=== PATIENT | female | born 1945 | race Caucasian/White ===

== ENCOUNTER → 2016-10-20 | Outpatient (CLI) | payer BC ==
[~2016-10-20] MED LIST: ASPCH81X PO; CHOL1TAB; COEN1CAP17 PO; CRAN1CAP2; DOCU-94 PO; DOXY100C76 PO; GLUC10007 PO; GLUCTAB32 PO; MISC-573; MULT-506 PO; OXYC-57 PO; PANT40TA PO; PSYL0.524 PO; PSYL55.43 PO; ROSU5TAB PO
--- NOTE | 2016-10-20 12:56 | DIAGNOSTIC IMAGING REPORT ---
CHEST 2 VIEWS ROUTINE CLINICAL HISTORY: Productive cough COMPARISON STUDY: No previous studies for comparison. FINDINGS: The cardiac and mediastinal contours are normal. There is no evidence of focal pulmonary consolidation. There is no evidence of failure. No pleural effusions are visualized.[ IMPRESSION: No active disease in the chest. Electronically signed by: Carlos Chen M.D. 10/20/2016 12:54 PM Dictated Date/Time: 10/20/2016 12:54 PM
== END | disposition home or self-care (01) ==
LOC: C.RAD 12:22
PROVIDERS: ATTEND Family Medicine
DX: R05 Cough (principal)

== ENCOUNTER 2016-10-31 10:19 | Observation (INO) | payer BC ==
[~2016-10-31] VITALS: Ht 170.2 cm; Wt 76.8 kg
[2016-10-31] VITALS (7 sets, daily range): BP systolic 105–158; BP diastolic 65–86; PULSE 71–79; TEMP 36.4–36.5; O2SAT 94–100; Ht 170.2 cm; Wt 76.8 kg
[~2016-10-31 10:19] MED LIST changes: +CEFAZOLIN 2000 MG/60 ML D5W 60 ML IV SCH; -COEN1CAP17 PO; -DOCU-94 PO; -DOXY100C76 PO; -GLUCTAB32 PO; -MISC-573; -OXYC-57 PO; -PANT40TA PO; -PSYL0.524 PO; -PSYL55.43 PO; -ROSU5TAB PO
[2016-10-31] MEDS ORDERED: PSYL55.43 PO (10:25)
[2016-10-31] MEDS ORDERED: ONDANSETRON INJ 2 MG/ML 2 ML VIAL IV STA (10:30)
[2016-10-31] MEDS ORDERED: SODIUM CHLORIDE 0.9% 1000ML 1,000 ML IV STA (10:30)
[2016-10-31] MEDS ORDERED: DOXY100C76 PO (10:42)
[2016-10-31] MEDS: MoRPHine SULFATE 10 MG/ML CARP/VIAL IV PRN ×3 (10:46→11:15)
--- NOTE | 2016-10-31 10:46 | EMERGENCY ROOM VISIT NOTE ---
History Report prepared by Klaudia: Caio Bernard Under the Supervision of: Dr. Mingo Alvarado M.D. 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 The patient was checking her mailbox when she slipped on a patch of ice and fell. The patient now complains of pain to her left shoulder and right knee. The left shoulder pain is most severe, and is worsened with movement. She did not take anything for pain. The patient was not able to get up after the fall. She hit her mouth on the pavement during the fall but did not lose consciousness. She did not injure her neck, back, abdomen, or chest. The patient is not on any blood thinners. She has never broken a bone before. The patient followed up with Dr. Koch, Orthopedic Surgeon, in the past for a bone spur. The patient is currently taking Doxycycline for a URI. 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 A total of 10 systems reviewed and were otherwise negative. Past Medical & Surgical Surgical Problems: (1) H/O shoulder surgery Family History Patient reports no known family medical history. Social History Smoking Status: Unknown if Ever Smoked Occupation Status: retired Current/Historical Medications Scheduled Aspirin (Aspirin Chewable), 81 MG PO Q2D Cholecalciferol (Vitamin D-3), DAILY Cranberry-Vitamin C-Vitamin E (Cranberry Super Strength), DAILY Doxycycline Monohydrate (Monodox), 100 MG PO BID Glucosamine Sulfate (Glucosamine), 1,000 MG PO DAILY Multivitamin (Multivitamin), 1 TAB PO DAILY Psyllium (Metamucil Powder), 1 PACK PO DAILY Allergies Coded Allergies: Nitrates, Organic (Unverified Allergy, Mild, 10/31/16) Nitrofurantoin (Unverified Allergy, Mild, 10/31/16) Ciprofloxacin (Verified Allergy, Unknown, HEART RACING, WARM FEELING, ) Uncoded Allergies: BLADDER INF MED (Allergy, Mild, 10/09/07) Physical Exam Vital Signs Date Time Temp Pulse Resp B/P Pulse Ox O2 Delivery O2 Flow Rate FiO2 10/31/16 13:16 78 18 176/84 99 Room Air 10/31/16 11:48 76 18 155/80 99 Nasal Cannula 2.0 10/31/16 11:45 84 Room Air 10/31/16 10:59 188/79 10/31/16 10:32 36.8 70 18 177/95 100 Room Air Physical Exam GENERAL: Patient is in significant distress secondary to pain. HEENT: No acute trauma, normocephalic atraumatic, mucous membranes moist, no nasal congestion, no scleral icterus. NECK: No stridor, no adenopathy, no meningismus, trachea is midline. LUNGS: Clear to auscultation bilaterally, no wheeze, no rhonchi, breath sounds equal. HEART: Without murmurs gallops or rubs, regular rate and rhythm. ABDOMEN: Soft, nontender, bowel sounds positive, no hernias, no peritonitis. EXTREMITIES: Swelling and pain to palpate the proximal left humerus, exam consistent with fracture, no evidence for left shoulder dislocation, left elbow and left wrist are without evidence for fracture, strong left radial pulse. Right anterior knee contusion, no evidence for dislocation, no bony deformity, no laceration requiring repair. NEUROLOGIC: Oriented x 3, no acute motor or sensory deficits, no focal weakness. SKIN: No rash, no jaundice, no diaphoresis. Medical Decision & Procedures ER Provider Diagnostic Interpretation: X ray results and stated below per my interpretation and radiologist interpretation. Other radiology results and stated below per my review and radiologist interpretation: LEFT SHOULDER MIN 2 VIEWS ROUTINE CLINICAL HISTORY: Left shoulder pain status post trauma COMPARISON: None. DISCUSSION: There is displaced spiral fracture of the proximal humeral diaphysis. Distal fragment is medial displaced x 12 mm. There is mild foreshortening at the fracture site. There is no humeral head dislocation. IMPRESSION: Acute displaced spiral fracture the proximal humeral diaphysis. Electronically signed by: Carlos Chen M.D. 10/31/2016 11:56 AM Dictated Date/Time: 10/31/2016 11:55 AM LEFT HUMERUS 2 VIEWS CLINICAL HISTORY: Fall with left arm pain. FINDINGS: AP and lateral views of the left humerus are obtained. No prior studies are available for comparison at the time of dictation. The skeletal structures are osteopenic. There is a spiral fracture through the proximal shaft of the left humerus with overlying soft tissue edema. There is medial distraction of the distal fragment by at least one shaft length, as well as anterior distraction of the distal shaft by approximately 1 shaft length. There is at least 3 cm of overriding of the fragments. There is mild apex volar angulation. The left shoulder and elbow joints are grossly maintained. Surgical clips are noted in the left axilla. Partially imaged left lung parenchyma appears clear. IMPRESSION: There is a distracted, angulated, and overriding fracture through the proximal left humeral shaft as above. Electronically signed by: Mingo King M.D. 10/31/2016 11:56 AM Dictated Date/Time: 10/31/2016 11:54 AM RIGHT KNEE 3 VIEWS HISTORY: fall, pain Right COMPARISON: None. FINDINGS: There is no fracture or dislocation. Mild prepatellar soft tissue swelling. Small knee effusion. Mild cartilage space narrowing within the medial compartment consistent with degenerative change. No radiopaque foreign bodies. IMPRESSION: No fracture or dislocation within the right knee. Mild prepatellar soft tissue swelling with a small knee effusion. Electronically signed by: Mario Alberto Rodgers M.D. 10/31/2016 11:52 AM Dictated Date/Time: 10/31/2016 11:[address] SCAN OF THE BRAIN WITHOUT IV CONTRAST CLINICAL HISTORY: Fall. COMPARISON STUDY: No priors. TECHNIQUE: Unenhanced axial CT scan of the brain is performed from the vertex to the skull base. CT DOSE: 729.78 mGycm FINDINGS: Brain parenchyma: There are age-related involutional changes noting minimal subcortical and periventricular microangiopathic change. There is no hemorrhage, mass effect, or evidence of acute territorial ischemia by CT criteria. Do-white matter is preserved. No extra-axial fluid collection is seen. Ventricles, sulci, cisterns: Prominent secondary to involutional change. Intracranial vasculature: The partially visualized intracranial vessels at the skull base are normal in appearance. Calvarium: The skeletal structures are osteopenic. There is no depressed calvarial fracture. Sinuses and mastoids: There is trace fluid within the right maxillary antrum. Frothy secretions are present within the right sphenoid sinus and the posterior right ethmoid sinuses. The mastoid air cells are well pneumatized. Orbits: The bony orbits are grossly intact. There are bilateral ocular lens implants. There has been previous ocular globe banding. IMPRESSION: There is no hemorrhage, mass effect, or evidence of acute territorial ischemia by CT criteria. Electronically signed by: Mingo King M.D. 10/31/2016 2:49 PM Dictated Date/Time: 10/31/2016 2:46 PM Laboratory Results 10/31/16 10:40 10/31/16 10:40 Test 10/31/16 10:40 Red Blood Count 4.62 M/uL (4.2-5.4) Mean Corpuscular Volume 89.8 fL (80-100) Mean Corpuscular Hemoglobin 30.7 pg (25-34) Mean Corpuscular Hemoglobin Concent 34.2 g/dl (32-36) RDW Standard Deviation 42.5 fL (36.4-46.3) RDW Coefficient of Variation 13.1 % (11.5-14.5) Mean Platelet Volume 10.2 fL (7.4-10.4) Anion Gap 9.0 mmol/L (3-11) Est Creatinine Clear Calc Drug Dose 61.7 ml/min Estimated GFR () 73.6 Estimated GFR (Non- 63.5 BUN/Creatinine Ratio 19.8 (10-20) Calcium Level 9.5 mg/dl (8.5-10.1) Laboratory results reviewed by me. Medications Administered Medications (Trade) Dose Ordered Sig/Elizabeth Route Start Time Stop Time Status Last Admin Dose Admin Morphine Sulfate (MoRPHine SULFATE INJ) 6 mg Q15M PRN IV 10/31/16 10:30 10/31/16 14:43 DC 10/31/16 11:15 6 MG Ondansetron HCl 4 mg 4 mg NOW STAT IV 10/31/16 10:30 10/31/16 10:33 DC 10/31/16 10:46 4 MG Sodium Chloride (Nss 1000ml) 1,000 ml @ 200 mls/hr Q5H STAT IV 10/31/16 10:30 10/31/16 14:43 DC 10/31/16 10:46 200 MLS/HR Ondansetron HCl (Zofran Inj) 4 mg STK-MED ONCE .ROUTE 10/31/16 12:32 10/31/16 12:34 DC 10/31/16 12:35 4 MG Metoclopramide HCl 10 mg 10 mg Q6H PRN IV 10/31/16 13:30 11/30/16 13:29 10/31/16 15:18 10 MG Dextrose/Sodium Chloride (D5W And 1/2nss) 1,000 ml @ 100 mls/hr Q10H IV 10/31/16 13:27 11/30/16 13:26 10/31/16 15:24 100 MLS/HR ED Course 1027: The patient was evaluated in room B4b. A complete history and physical exam was performed. 1030: NSS 1000 ml @ 200 mls/hr, Zofran 4 mg IV, Morphine Sulfate 6 mg IV. 1211: Discussed the case with Dr. Kovacs, Orthopedic Surgeon. He recommended the arm be placed in a splint. 1225: Updated the patient. 1310: Dr. Koch, Orthopedic Surgeon, evaluated the patient. He would like to take her to the OR later today. Medical Decision Differential diagnosis includes shoulder dislocation, humerus fracture, neurovascular compromise, rib head or neck injury, back injury, knee fracture or contusion. There is no leukocytosis or concerning anemia. No significant electrolyte abnormality or kidney failure. Brain CT shows no acute bleed or mass effect. Right knee film shows no acute fracture. Left humerus and shoulder films reveal a proximal humeral shaft fracture. The shoulder is not dislocated. On exam, there was no neurovascular compromise. The patient received IV morphine, IV Zofran, she received IV saline. I did discuss the case with orthopedics. A splint was placed. Orthopedics did evaluate the patient in the emergency room, the patient is going to be sent to the OR for intervention. I talked about all my findings with the patient. I do think her knee is just contused. There does not appear to be any injury to the ribs, back or C-spine by my exam or history. Consults Time Called: 1205 Consulting Physician: Dr. Kovacs, Orthopedic Surgeon Returned Call: 1210 1211: Discussed the case with Dr. Kovacs, Orthopedic Surgeon. He recommended the arm be placed in a sling. Impression Primary Impression: Left humeral fracture Additional Impressions: Contusion of right knee Fall Scribe Attestation The scribe's documentation has been prepared under my direction and personally reviewed by me in its entirety. I confirm that the note above accurately reflects all work, treatment, procedures, and medical decision making performed by me. Departure Information Dispostion Being Evaluated By Surgeon Ariel Ding M.D. (PCP) Problem Qualifiers
[2016-10-31 10:59] LABS: HEMATOCRIT 41.5 % (37-47); MEAN CELL VOLUME 89.8 fL (80-100); MEAN CORPUSCULAR HEMOGLOBIN 30.7 pg (25-34); MEAN CORPUSCULAR HGB CONC 34.2 g/dl (32-36); MEAN PLATELET VOLUME 10.2 fL (7.4-10.4); PLATELET COUNT 244 K/uL (130-400); RED BLOOD COUNT 4.62 M/uL (4.2-5.4); WHITE BLOOD COUNT 9.25 K/uL (4.8-10.8)
[2016-10-31 11:16] LABS: BUN/CREATININE RATIO 19.8 (10-20); CALCIUM 9.5 mg/dl (8.5-10.1); CREATININE 0.92 mg/dl (0.60-1.20); POTASSIUM 4.3 mmol/L (3.5-5.1)
--- NOTE | 2016-10-31 11:54 | DIAGNOSTIC IMAGING REPORT ---
RIGHT KNEE 3 VIEWS HISTORY: fall, pain Right COMPARISON: None. FINDINGS: There is no fracture or dislocation. Mild prepatellar soft tissue swelling. Small knee effusion. Mild cartilage space narrowing within the medial compartment consistent with degenerative change. No radiopaque foreign bodies. IMPRESSION: No fracture or dislocation within the right knee. Mild prepatellar soft tissue swelling with a small knee effusion. Electronically signed by: Mario Alberto Rodgers M.D. 10/31/2016 11:52 AM Dictated Date/Time: 10/31/2016 11:51 AM
--- NOTE | 2016-10-31 11:57 | DIAGNOSTIC IMAGING REPORT ---
LEFT HUMERUS 2 VIEWS CLINICAL HISTORY: Fall with left arm pain. FINDINGS: AP and lateral views of the left humerus are obtained. No prior studies are available for comparison at the time of dictation. The skeletal structures are osteopenic. There is a spiral fracture through the proximal shaft of the left humerus with overlying soft tissue edema. There is medial distraction of the distal fragment by at least one shaft length, as well as anterior distraction of the distal shaft by approximately 1 shaft length. There is at least 3 cm of overriding of the fragments. There is mild apex volar angulation. The left shoulder and elbow joints are grossly maintained. Surgical clips are noted in the left axilla. Partially imaged left lung parenchyma appears clear. IMPRESSION: There is a distracted, angulated, and overriding fracture through the proximal left humeral shaft as above. Electronically signed by: Mingo King M.D. 10/31/2016 11:56 AM Dictated Date/Time: 10/31/2016 11:54 AM
--- NOTE | 2016-10-31 11:57 | DIAGNOSTIC IMAGING REPORT ---
LEFT SHOULDER MIN 2 VIEWS ROUTINE CLINICAL HISTORY: Left shoulder pain status post trauma COMPARISON: None. DISCUSSION: There is displaced spiral fracture of the proximal humeral diaphysis. Distal fragment is medial displaced x 12 mm. There is mild foreshortening at the fracture site. There is no humeral head dislocation. IMPRESSION: Acute displaced spiral fracture the proximal humeral diaphysis. Electronically signed by: Carlos Chen M.D. 10/31/2016 11:56 AM Dictated Date/Time: 10/31/2016 11:55 AM
[2016-10-31] MEDS ORDERED: ONDANSETRON INJ 2 MG/ML 2 ML VIAL ONE ×2 (12:32→19:18)
[2016-10-31] MEDS ORDERED: D5W AND 1/2NSS 1,000 ML IV SCH (13:27)
[2016-10-31] MEDS ORDERED: METOCLOPRAMIDE HCL INJ 5 MG/ML 2 ML VIAL IV PRN (13:30)
[2016-10-31] MEDS ORDERED: ONDANSETRON INJ 2 MG/ML 2 ML VIAL IV PRN ×2 (13:30→18:00)
[2016-10-31] MEDS ORDERED: ASPIRIN 81 MG CHEW PO SCH (13:30)
[2016-10-31] MEDS ORDERED: HYDROmorphone INJ 1 MG/ML SYR IV PRN ×2 (13:30→18:00)
[2016-10-31] MEDS ORDERED: IV FLUIDS COMPLETED PRN (13:45)
--- NOTE | 2016-10-31 14:50 | DIAGNOSTIC IMAGING REPORT ---
CT SCAN OF THE BRAIN WITHOUT IV CONTRAST CLINICAL HISTORY: Fall. COMPARISON STUDY: No priors. TECHNIQUE: Unenhanced axial CT scan of the brain is performed from the vertex to the skull base. CT DOSE: 729.78 mGycm FINDINGS: Brain parenchyma: There are age-related involutional changes noting minimal subcortical and periventricular microangiopathic change. There is no hemorrhage, mass effect, or evidence of acute territorial ischemia by CT criteria. Do-white matter is preserved. No extra-axial fluid collection is seen. Ventricles, sulci, cisterns: Prominent secondary to involutional change. Intracranial vasculature: The partially visualized intracranial vessels at the skull base are normal in appearance. Calvarium: The skeletal structures are osteopenic. There is no depressed calvarial fracture. Sinuses and mastoids: There is trace fluid within the right maxillary antrum. Frothy secretions are present within the right sphenoid sinus and the posterior right ethmoid sinuses. The mastoid air cells are well pneumatized. Orbits: The bony orbits are grossly intact. There are bilateral ocular lens implants. There has been previous ocular globe banding. IMPRESSION: There is no hemorrhage, mass effect, or evidence of acute territorial ischemia by CT criteria. Electronically signed by: Mingo King M.D. 10/31/2016 2:49 PM Dictated Date/Time: 10/31/2016 2:46 PM
--- NOTE | 2016-10-31 15:55 | HISTORY & PHYSICAL EXAMINATION ---
DATE OF ADMISSION: 10/31/2016 CHIEF COMPLAINT: Left humeral shaft fracture. HISTORY OF PRESENT ILLNESS: Ana is a pleasant 71-year-old female who slipped and fell earlier today directly on to her left elbow. She had immediate left arm pain. She came to the Emergency Room. Radiographs demonstrated displaced left humeral shaft fracture. She was placed in a splint. She was having a lot of pain and discomfort and given the displacement of the fracture, we felt it was best treated with operative fixation. She is admitted to the orthopedic service for urgent fixation of the left humeral shaft. PAST MEDICAL HISTORY: Denies. MEDICATIONS: Aspirin 81 mg daily, Vitamin D3 400 units daily, Monodox 100 mg twice a day, glucosamine/chondroitin daily, daily multivitamin. PAST SURGICAL HISTORY: Significant for a shoulder arthroscopy. ALLERGIES: INCLUDE CIPRO, NITRATES, NITROFURANTOIN. FAMILY HISTORY: Noncontributory. SOCIAL HISTORY: The patient denies any tobacco, alcohol or IV drug use. She is currently retired. She lives in a house with her . She is a very active individual. REVIEW OF SYSTEMS: She complains of left arm pain. All other pertinent review of systems is negative. PHYSICAL EXAMINATION: GENERAL: She is awake, alert and oriented x3. She is in no apparent distress. She is very pleasant. HEENT: Pupils equal, round and reactive to light. Extraocular motion intact. Oral mucosa is pink and moist. HEART: Regular rate per radial pulse. LUNGS: Jacklyn symmetrically bilaterally with no audible breath sounds. ABDOMEN: Soft, nontender, nondistended. MUSCULOSKELETAL: On physical examination, she is in a left coaptation splint and an arm sling. I was unable to get a good neurologic exam in the ER. According to the patient, there were no abrasions, lesions or lacerations of the skin, no open fracture. IMAGING: X-rays of the left humerus do show a displaced long oblique fracture of the midshaft of the left humerus. IMPRESSION: Displaced midshaft left humerus fracture. PLAN: We discussed conservative versus operative fixation. She elected to proceed with plate and screw fixation. She is being admitted to the orthopedic service. We will keep her n.p.o. and hopefully be able to fix her arm later today.
[2016-10-31] MEDS ORDERED: FENTANYL CITRATE INJ 50 MCG/1 ML 2 ML VIAL ONE ×3 (16:04→19:27)
[2016-10-31] MEDS ORDERED: MIDAZOLAM HCL 1 MG/ML 2ML VIAL ONE (17:15)
--- NOTE | 2016-10-31 17:18 | History & Physical Bridge Note ---
H&P Re-Evaluation Bridge Note: I have examined the patient, reviewed the History & Physical and in the interval since the performance of the History & Physical I have noted the following changes of clinical significance: No changes noted
[2016-10-31] MEDS ORDERED: FENTANYL CITRATE INJ 50 MCG/1 ML 2 ML VIAL IV PRN (18:00)
[2016-10-31] MEDS ORDERED: EpHEDrine SULFATE INJ 50 MG/ML AMP IV PRN (18:00)
[2016-10-31] MEDS ORDERED: ATROPINE SULFATE 0.1 MG/ML 5ML SYR IV PRN (18:00)
[2016-10-31] MEDS ORDERED: DEXAMETHASONE SOD INJ 4 MG/ML VIAL ONE (19:18)
[2016-10-31] MEDS ORDERED: PROPOFOL IV EMULSION 10 MG/ML 20 ML VIAL IV ONE (19:18)
[2016-10-31] MEDS ORDERED: LIDOCAINE HCL 2% 2 ML VIAL (20MG/ML) ONE (19:18)
[2016-10-31] MEDS ORDERED: ROCURONIUM BROMIDE 10 MG/ML 5 ML VIAL ONE (19:18)
[2016-10-31] MEDS ORDERED: SUCCINYLCHOLINE 100MG/5ML SYR IV ONE (19:18)
[2016-10-31] MEDS ORDERED: NEOSTIGMINE METHYLSULFATE 5 MG/5 ML SYR ONE (19:20)
[2016-10-31] MEDS ORDERED: GLYCOPYRROLATE INJ 0.2 MG/ML VIAL ONE (19:20)
[2016-10-31] MEDS ORDERED: BUPIVACAINE/EPINEPHRINE 0.5% MPF 1:200,000 30 ML VIAL INJ ONE (19:29)
[2016-10-31] MEDS ORDERED: BACITRACIN 50000 UNIT VIAL IR ONE (19:29)
--- NOTE | 2016-10-31 19:33 | DIAGNOSTIC IMAGING REPORT ---
LEFT HUMERUS MIN 2 VIEW ROUTINE CLINICAL HISTORY: LT HUMERAL FX postoperative evaluation COMPARISON: None. DISCUSSION: Evidence for reduction internal fixation of humeral fracture. Alignment is anatomic. Expected soft tissue postoperative change IMPRESSION: Anatomic alignment status post open reduction internal fixation Electronically signed by: Giovanni Xiong M.D. 10/31/2016 7:32 PM Dictated Date/Time: 10/31/2016 7:31 PM
--- NOTE | 2016-10-31 19:43 | [facility] Post Operative Brief Note ---
Immediate Operative Summary Operative Date Oct 31, 2016. Pre-Operative Diagnosis Displaced midshaft left humerus fracture Post-Operative Diagnosis Displaced midshaft left humerus fracture Procedure(s) Performed Left Humerus Open Reduction Internal Fixation Surgeon Dr. Koch Network Communications Engineer Surgeon(s) Esteban Mckinnon PA-C Estimated Blood Loss 200ml Findings as above Specimens None Complication(s) None Disposition Recovery Room / PACU
[2016-10-31] MEDS ORDERED: OXYCODONE/ACETAMINOPHEN 5-325 TAB PO PRN (19:45)
--- NOTE | 2016-10-31 20:38 | Anesthesiology Progress Note ---
Anesthesia Post Op Note Date & Time Oct 31, 2016 at 20:38 Vital Signs Pain Intensity: 1 Vital Signs Past 12 Hours Date Time Temp Pulse Resp B/P Pulse Ox O2 Delivery O2 Flow Rate FiO2 10/31/16 20:30 36.8 10/31/16 20:28 134/64 10/31/16 20:26 73 18 10/31/16 20:26 73 14 100 10/31/16 20:23 133/78 10/31/16 20:21 77 20 100 10/31/16 20:21 78 20 10/31/16 20:18 138/64 10/31/16 20:16 76 14 10/31/16 20:16 76 14 100 10/31/16 20:13 136/68 10/31/16 20:11 78 14 100 10/31/16 20:11 78 14 10/31/16 20:10 Nasal Cannula 3 10/31/16 20:08 137/64 10/31/16 20:06 83 18 10/31/16 20:06 84 18 100 10/31/16 20:03 142/73 10/31/16 20:01 83 12 100 10/31/16 20:01 83 12 10/31/16 19:59 137/71 10/31/16 19:56 36 89 16 137/71 100 Mask 10 10/31/16 16:22 36.4 73 18 158/86 Room Air 10/31/16 14:56 36.4 73 18 158/86 94 Room Air 10/31/16 14:00 99 Room Air 10/31/16 13:16 78 18 176/84 99 Room Air 10/31/16 11:48 76 18 155/80 99 Nasal Cannula 2.0 10/31/16 11:45 84 Room Air 10/31/16 10:59 188/79 10/31/16 10:32 36.8 70 18 177/95 100 Room Air Notes Mental Status: alert / awake / arousable, participated in evaluation Pt Amnestic to Procedure: Yes Nausea / Vomiting: adequately controlled Pain: adequately controlled Airway Patency, RR, SpO2: stable & adequate BP & HR: stable & adequate Hydration State: stable & adequate Anesthetic Complications: no major complications apparent
[2016-10-31] MEDS: D5W AND 1/2NSS + 20MEQ KCL 1,000 ML IV SCH (21:05)
[2016-10-31] MEDS: KETOROLAC TROMETHAMINE 15 MG/ML VIAL IV. SCH (22:20)
[2016-11-01] MEDS: CEFAZOLIN IV 1,000 MG in DEXTROSE 5% 50ML 50 ML IV SCH ×2 (02:48→10:34)
[2016-11-01 03:47] VITALS: BP 115/72; PULSE 78; TEMP 36.5; O2SAT 92
[2016-11-01] MEDS: KETOROLAC TROMETHAMINE 15 MG/ML VIAL IV. SCH ×2 (03:57→11:26)
[2016-11-01] MEDS ORDERED: OXYC-57 PO (06:20)
--- NOTE | 2016-11-01 06:23 | Discharge Instructions ---
Discharge Instructions Admission Reason for Admission: L Humeral Fracture Discharge Discharge Diagnosis / Problem: L humerus fracture Discharge Goals Goal(s): Decrease discomfort, Improve function Activity Recommendations Activity Limitations: as noted below Shower/Bathe: may shower/bathe in 3 days sling for at least 2 weeks . Instructions / Follow-Up Instructions / Follow-Up may remove plastic and white dressings on Thursday, leave glued on mesh dressing in place until follow-up appt. May shower. Follow-up in 10-[address] Koch Current Hospital Diet Patient's current hospital diet: Regular Diet Discharge Diet Recommended Diet: Regular Diet Procedures Procedures Performed: Left Humerus Open Reduction Internal Fixation Pending Studies Studies pending at discharge: no Medical Emergencies . Who to Call and When: Medical Emergencies: If at any time you feel your situation is an emergency, please call 911 immediately. . Non-Emergent Contact Non-Emergency issues call your: Surgeon Call Non-Emergent contact if: wound has increased drainage, wound has increased redness . "Provider Documentation" section prepared by Darin Koch. VTE Core Measure Inpt VTE Proph given/why not?: Treatment not indicated
[2016-11-01] MEDS: D5W AND 1/2NSS + 20MEQ KCL 1,000 ML IV SCH (06:25)
--- NOTE | 2016-11-01 06:36 | PROGRESS NOTE ---
DATE: 11/01/2016 CHIEF COMPLAINT: Status post ORIF of the left humeral shaft postop day #1. PROGRESS: Ana was seen and examined at bedside today. Overall, she is doing very well. She has a little bit of pain and cramping in the arm but it is not bad. She was able to get some sleep last night, has no other complaints. PHYSICAL EXAMINATION: LEFT ARM: The dressing is clean and dry. There is a little bit of ecchymosis. Her radial, median and ulnar nerves are all checked and intact at her wrist. She is wearing her sling as instructed. IMPRESSION: Status post open reduction internal fixation of the left humerus postop day #1. PLAN: At this point, she is doing well. Her pain is controlled with the Percocet. She will stay in the arm sling for at least 2 weeks. I am going to discharge her to home later this morning.
[2016-11-01 07:24] VITALS: BP 116/68; PULSE 69; TEMP 36.6; O2SAT 98
--- NOTE | 2016-11-01 07:24 | DISCHARGE SUMMARY ---
DISCHARGE DIAGNOSIS: Left humeral shaft fracture. PROCEDURE: ORIF of the left humeral shaft by Dr. Koch on 11/01/2016. DISCHARGE INSTRUCTIONS: 1. Percocet 5/325 one to two every 6 hours as needed for pain. 2. Aspirin 81 mg every other day. 3. Vitamin D3 400 units daily. 4. Monodox 100 mg twice a day. 5. Glucosamine chondroitin. 6. Daily multivitamin. 7. Metamucil powder. 8. Left arm sling for at least 2 weeks. 9. January shower on Thursday. 10. Follow up with Dr. Koch in 2 weeks. 11. Call the office of Dr. Koch with any questions or concerns. HOSPITAL COURSE: Ana is a pleasant 71-year-old female who tripped and fell yesterday sustaining a fracture to her left humeral shaft. It was a displaced fracture. I saw her in the Emergency Room and she elected to undergo open reduction internal fixation. Later that day, she was brought down to the operating room and underwent an ORIF of her left humeral shaft without complications. She had a general anesthetic. Postoperatively, she was kept overnight for postoperative observation and medical management. The next day she was doing well, the pain was well controlled in her left arm, and she was able to follow all instructions. She was subsequently discharged to home with the above instructions.
[2016-11-01] MEDS ORDERED: NURSING VERBAL MED ORDER ONE (07:30)
[2016-11-01] MEDS ORDERED: ACETAMINOPHEN 325 MG TAB PO ONE (08:00)
[2016-11-01] MEDS ORDERED: MULTIVITAMIN TAB PO SCH (09:00)
[2016-11-01] MEDS ORDERED: CHOLECALCIFEROL 400 INTER.UNIT TAB PO SCH (09:00)
[2016-11-01] MEDS ORDERED: PSYLLIUM 58.6% PWD PACK S\\F PO SCH (09:00)
[2016-11-01 10:51] VITALS: BP 116/68; PULSE 69; TEMP 36.6; O2SAT 98
--- NOTE | 2016-11-03 07:01 | OPERATIVE REPORT ---
DATE OF OPERATION: 10/31/2016 PREOPERATIVE DIAGNOSIS: Displaced left humeral shaft fracture. POSTOPERATIVE DIAGNOSIS: Displaced left humeral shaft fracture. PROCEDURE: Open reduction and internal fixation of the left humeral shaft. SURGEON: Dr. Darin Koch. EAP CONSULTANT: Bean Mckinnon PA-C, whose assistance was necessary for positioning the arm and helping with retraction and instrumentation. ANESTHESIA: General. COMPLICATIONS: None. CONDITION: Stable to PACU. IMPLANTS USED: I used a Synthes Narrow 4.5 LCP plate. INDICATIONS: Ana is a pleasant 71-year-old female who is very active. She fell early this morning directly onto her left arm. She had significant pain and deformity of her left arm. She came to the Emergency Room where radiographs demonstrated displaced humeral shaft fracture. I discussed operative versus nonoperative treatment with her and she elected to proceed with operative repair. PROCEDURE IN DETAIL: She was taken from the ER to the preoperative holding area, the operative extremity was identified and signed. She was given a preoperative antibiotic, taken back to the operating room, laid on the table in supine position and put under general anesthesia. The left arm was then prepped and draped in sterile fashion. Time-out was done and the patient and operative extremity was properly identified. An anterolateral approach was used. Dissection was taken down through the fascia and the biceps and brachialis was retracted anteriorly and the triceps posteriorly. The radial nerve was not encountered during the dissection. I did not go posterior to the intermuscular fascia. A portion of the anterior deltoid was elevated off the tuberosity. The fracture was reduced. Two lag screws were placed. This did a nice trial by holding the fracture in place. A 9-hole Synthes Narrow 4.5 mm plate was then applied. A compression screw was placed both proximally and distally. The remainder of the screw holes were filled with locking screws. This gave excellent fixation of the fracture site. Fluoroscopy was used throughout the case to ensure anatomic reduction of the fracture and anatomic alignment of the plate. Final pictures were taken. The anterior deltoid was then repaired back to the plate with four #2 FiberWire sutures which were passed through the plate before it was put down. This gave a nice repair of the anterior deltoid. The wound was irrigated with 3 liters of normal saline solution with bacitracin. The skin was then closed with 2-0 Vicryl, a running 3-0 V-Loc suture and a Prineo dressing. She was then placed in a soft dressing and an arm sling. She was then extubated, transferred to a [facility] and taken to the postanesthesia care unit in stable condition. She tolerated the procedure well. I attest to the content of the Intraoperative Record and any orders documented therein. Any exceptio ns are noted below.
[2016-11-06] MEDS ORDERED: PANT40TA PO (13:40)
[2016-11-27] MEDS ORDERED: COEN1CAP17 PO (14:21)
[2016-11-27] MEDS ORDERED: ROSU5TAB PO (14:21)
[2016-11-27] MEDS ORDERED: PSYL0.524 PO (14:21)
[2016-11-27] MEDS ORDERED: PANT40TA PO (14:21)
== END 2016-11-01 11:44 | disposition home or self-care (01) ==
LOC: ENRESERVTM → ENRESERVDT → EDBD 10:19 → C.EDB 10:22 → C.MSN 13:34
PROVIDERS: ADMIT Orthopaedic Surgery; ATTEND Orthopaedic Surgery
DX: S42.302A Unspecified fracture of shaft of humerus, left arm, initial encounter for closed fracture (principal); S80.01XA Contusion of right knee, initial encounter; W00.0XXA Fall on same level due to ice and snow, initial encounter; Z79.82 Long term (current) use of aspirin

== ENCOUNTER 2016-11-05 10:31 | Observation (INO) | payer BC ==
[~2016-11-05] VITALS: Ht 170.2 cm; Wt 75.2 kg
[~2016-11-05 10:31] MED LIST changes: -CEFAZOLIN 2000 MG/60 ML D5W 60 ML IV SCH; +DOXY100C76 PO; +OXYC-57 PO; +PSYL55.43 PO
[2016-11-05 10:33] VITALS: Ht 170.2 cm; Wt 75.2 kg
--- NOTE | 2016-11-05 11:10 | EMERGENCY ROOM VISIT NOTE ---
History First contact with patient: 10:48 Chief Complaint: RESPIRATORY PROBLEMS Stated Complaint: BREATHING/CHEST Nursing Triage Summary: pt had surgery lexy night ever since has been feeling tightness and weight on left chest breathing in and out does not feel right. pt reports she fell and broke arm that required surgery. did not have cxr at that time History of Present Illness The patient is a 71 year old female who presents to the Emergency Room via private vehicle accompanied by with complaints of "breathing/chest". The patient states that she recently fell on the ice injuring her left arm which required surgery this past Thursday evening by Dr. Koch. She states that since the surgery she is developed a discomfort in the anterior chest that is substernal that she rates as a 6/10. It has been persistent since Thursday. She notes that it hurts to take a deep breath in the anterior chest. Recently she has felt exhausted and tired. This morning she states she just doesn't feel right. She notes that it's not really a pain but more of a discomfort. Feels like there is a pressure on the anterior chest. The heart history is a heart murmur. 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 Review of Systems A complete 10-point Review of Systems was discussed with the patient, with pertinent positives and negatives listed in the History of Present Illness. All remaining Review of Systems questions can be considered negative unless otherwise specified. Past Medical/Surgical History Medical Problems: (1) Elevated troponin Surgical Problems: (1) H/O shoulder surgery Family History Patient reports no known family medical history. Social History Smoking Status: Never Smoker Occupation Status: retired Current/Historical Medications Scheduled Aspirin (Aspirin Chewable), 81 MG PO DAILY Cholecalciferol (Vitamin D-3), DAILY Cranberry-Vitamin C-Vitamin E (Cranberry Super Strength), DAILY Docusate Sodium (Colace), 1 CAP PO BID Doxycycline Monohydrate (Monodox), 100 MG PO BID Ftruchmfpzs-Cmkceywwkll-Vi Cho (Glucosamine Chondroitin &), 1 TAB PO DAILY Multivitamin (Multivitamin), 1 TAB PO DAILY Allergies Coded Allergies: Nitrates, Organic (Unverified Allergy, Mild, 11/05/16) Nitrofurantoin (Unverified Allergy, Mild, 11/05/16) Ciprofloxacin (Verified Allergy, Unknown, HEART RACING, WARM FEELING, ) Uncoded Allergies: BLADDER INF MED (Allergy, Mild, 10/09/07) Physical Exam Vital Signs Date Time Temp Pulse Resp B/P Pulse Ox O2 Delivery O2 Flow Rate FiO2 11/05/16 12:15 70 18 170/72 98 Room Air 11/05/16 11:12 97 Room Air 11/05/16 10:59 67 11/05/16 10:33 36.9 71 18 154/78 97 Room Air Physical Exam VITAL SIGNS - Vital signs and nursing notes were reviewed. GENERAL -71-year-old female appearing her stated age who is in no acute distress. Communicates well with provider and answers questions appropriately. SKIN - Without rashes. There is bruising noted to the left upper arm consistent with postsurgical healing. There is also a bruise to the chin that is well-healing. HEAD - NC/AT. EYES - Sclera anicteric. Palpebral conjunctiva pink and moist with no injection noted. EARS - No deformities of external structures noted on gross examination bilaterally. NOSE - Midline and without cyanosis. No epistaxis or purulent drainage noted. Septum midline without deviation or septal hematoma noted. MOUTH/OROPHARYNX - Without perioral cyanosis. Buccal mucosa pink and moist and without leukoplakia. NECK - Neck with FROM. LUNGS - Chest wall symmetric without accessory muscle use, intercostals retractions, or central cyanosis. Normal vesicular breath sounds CTA B/L. No wheezes, rales, or rhonchi appreciated. CARDIAC - RRR with S1/S2. No murmur, rubs, or gallops appreciated. The chest pain is not reproducible with palpation. ABDOMEN - Abdominal contour without pulsations or visible masses. BS normoactive all four quadrants. No tenderness, palpable masses, hepatosplenomegaly, or ascites noted. EXTREMITIES - No clubbing or peripheral cyanosis. No pretibial edema present. +5 /5 strength noted in UE/LE bilaterally. NEUROLOGIC - Cranial nerves II through XII grossly intact. Sensory intact to light touch throughout. PSYCH - A&Ox3 and cooperates fully with examiner. Pt is very pleasant and interacts well with examiner. Medical Decision & Procedures ER Provider Diagnostic Interpretation: CHEST CTA for PULMONARY ARTERIES CT DOSE: 495.51 mGycm HISTORY: Chest pain dyspnea TECHNIQUE: Multiaxial CT images of the chest were performed following the intravenous administration of contrast to evaluate the pulmonary arteries. Maximal intensity projection images were also obtained. COMPARISON STUDY: None. FINDINGS: There is a normal caliber thoracic aorta with no evidence for dissection. There is no evidence for pulmonary embolus. No pleural effusions. No pneumothorax. The liver and spleen are unremarkable. No mediastinal or hilar lymphadenopathy. The central airways are patent. The lungs are clear. IMPRESSION: No evidence for pulmonary embolus. Lungs are clear. Electronically signed by: Giovanni Xiong M.D. 11/05/2016 12:20 PM Dictated Date/Time: 11/05/2016 12:17 PM CHEST ONE VIEW PORTABLE CLINICAL HISTORY: Chest pain dyspnea COMPARISON STUDY: 10/20/2016 FINDINGS: The bones soft tissues and hemidiaphragms are normal. The cardiomediastinal silhouette is normal. The lungs are clear. The pulmonary vasculature is normal. IMPRESSION: Negative chest. Electronically signed by: Giovanni Xiong M.D. 11/05/2016 11:31 AM Dictated Date/Time: 11/05/2016 11:30 AM Laboratory Results 11/05/16 11:10 Red Blood Count 3.72, Mean Corpuscular Volume 90.3, Mean Corpuscular Hemoglobin 30.6, Mean Corpuscular Hemoglobin Concent 33.9, Mean Platelet Volume 10.6, Neutrophils (%) (Auto) 69.7, Lymphocytes (%) (Auto) 22.6, Monocytes (%) (Auto) 5.0, Eosinophils (%) (Auto) 1.9, Basophils (%) (Auto) 0.5, Neutrophils # (Auto) 5.44, Lymphocytes # (Auto) 1.76, Monocytes # (Auto) 0.39, Eosinophils # (Auto) 0.15, Basophils # (Auto) 0.04 11/05/16 11:10 Test 11/05/16 11:10 11/05/16 11:13 11/05/16 13:18 White Blood Count 7.80 K/uL (4.8-10.8) Red Blood Count 3.72 M/uL (4.2-5.4) Hemoglobin 11.4 g/dL (12.0-16.0) Hematocrit 33.6 % (37-47) Mean Corpuscular Volume 90.3 fL (80-100) Mean Corpuscular Hemoglobin 30.6 pg (25-34) Mean Corpuscular Hemoglobin Concent 33.9 g/dl (32-36) Platelet Count 198 K/uL (130-400) Mean Platelet Volume 10.6 fL (7.4-10.4) Neutrophils (%) (Auto) 69.7 % Lymphocytes (%) (Auto) 22.6 % Monocytes (%) (Auto) 5.0 % Eosinophils (%) (Auto) 1.9 % Basophils (%) (Auto) 0.5 % Neutrophils # (Auto) 5.44 K/uL (1.4-6.5) Lymphocytes # (Auto) 1.76 K/uL (1.2-3.4) Monocytes # (Auto) 0.39 K/uL (0.11-0.59) Eosinophils # (Auto) 0.15 K/uL (0-0.5) Basophils # (Auto) 0.04 K/uL (0-0.2) RDW Standard Deviation 43.0 fL (36.4-46.3) RDW Coefficient of Variation 13.1 % (11.5-14.5) Immature Granulocyte % (Auto) 0.3 % Immature Granulocyte # (Auto) 0.02 K/uL (0.00-0.02) Prothrombin Time 10.5 SECONDS (9.0-12.0) Prothromb Time International Ratio 1.0 (0.9-1.1) Activated Partial Thromboplast Time 24.9 SECONDS (21.0-31.0) Partial Thromboplastin Ratio 1.0 Est Creatinine Clear Calc Drug Dose 76.0 ml/min Estimated GFR () 95.8 Estimated GFR (Non- 82.7 BUN/Creatinine Ratio 25.2 (10-20) Calcium Level 9.5 mg/dl (8.5-10.1) Total Bilirubin 0.5 mg/dl (0.2-1) Aspartate Amino Transf (AST/SGOT) 27 U/L (15-37) Alanine Aminotransferase (ALT/SGPT) 20 U/L (12-78) Alkaline Phosphatase 55 U/L (45-117) Total Protein 6.5 gm/dl (6.4-8.2) Albumin 3.3 gm/dl (3.4-5.0) Globulin 3.2 gm/dl (2.5-4.0) Albumin/Globulin Ratio 1.0 (0.9-2) Hepatitis C Antibody Screen NEG (NEG) Bedside Hemoglobin 11.2 g/dl (12.0-16.0) Bedside Hematocrit 33 % (37-47) Bedside Sodium 138 mEq/L (135-144) Bedside Potassium 4.4 mEq/L (3.3-5.0) Bedside Chloride 102 mEq/L (101-112) Bedside Total CO2 26 mEq/l (24-31) Anion Gap 15.0 mmol/L (16-25) Bedside Blood Urea Nitrogen 20 mg/dl (7-18) Bedside Creatinine 0.8 mg/dl (0.6-1.3) Bedside Glucose (other) 96 mg/dl (70-99) Bedside Ionized Calcium (Miller) 1.21 mmol/l (1.12-1.32) Bedside Troponin I 0.100 ng/ml (0-0.045) Medications Administered Medications (Trade) Dose Ordered Sig/Elizabeth Route Start Time Stop Time Status Last Admin Dose Admin Aspirin (Aspirin Chew) 324 mg NOW STAT PO 11/05/16 12:28 11/05/16 12:29 DC 11/05/16 12:32 324 MG Medical Decision Patient was seen and evaluated as above. After obtaining a thorough history and physical examination IV access was obtained and a CT chest for PE, IV access is obtained and a CBC, CMP, CK-MB, CPK, coagulation studies, UA clean catch culture if indicated, apply monitor, continuous pulse ox, 87 oxygen, i- STAT, nothing by mouth, [id number] troponin, stat EKG, chest 1 view portable secondary to subjective and objective examination findings. I was concerned that the patient had a pulmonary embolism as she certainly has risk factors to include recent surgery, has been feeling short of breath/tired recently with chest pain/discomfort. Her EKG reveals normal sinus rhythm rate of 66 bpm. No ectopy or ischemic change noted. The above workup was completed and it is important to note that there was an elevated troponin. She was given 324 mg of aspirin by mouth. Troponin was repeated and found to be further elevated. She was found to be anemic with a blood count of 11.4. No leukocytosis. Coagulation studies within normal limits. BUN was elevated at 20. The care troponin was elevated at 0.09 and then redrawn and found to be 0.1. Urine was negative. Radiograph results as above. Negative CT as above. Case was discussed with my attending. I was concerned and the elevated troponin, fill the patient should be managed in the hospital for further evaluation and management. She was admitted for further evaluation and management. Please refer to further hospital documentation regarding her stay. In evaluation treatment this patient following differential diagnoses entertained: Acute myocardial infarction, pulmonary embolism, mediastinal injury , pneumothorax, among others. Impression Primary Impression: Chest discomfort Additional Impressions: Anemia Elevated troponin Departure Information Dispostion Admitted as an inpatient Condition FAIR Referrals Ariel Lin M.D. (PCP) Patient Instructions My [facility] Problem Qualifiers Additional Impressions:
[2016-11-05] MEDS ORDERED: OPTIRAY 320 IV PRN (11:15)
--- NOTE | 2016-11-05 11:19 | EMERGENCY ROOM VISIT NOTE ---
ED Visit Note First contact with patient: 10:48 This Patient was discussed with the physician Front Desk Agent, Ba Morales PA-C. The pertinent historical and physical exam findings were confirmed. I agree with the studies ordered and with the interpretations of these studies. I agree with the disposition and care plan.
[2016-11-05 11:30] LABS: BASO % 0.5 %; BASO ABS # 0.04 K/uL (0-0.2); COMPLETE YES; EOS % 1.9 %; HEMATOCRIT 33.6 % (37-47); IG% 0.3 %; LYMPH % 22.6 %; LYMPH ABS # 1.76 K/uL (1.2-3.4); MEAN CELL VOLUME 90.3 fL (80-100); MEAN CORPUSCULAR HEMOGLOBIN 30.6 pg (25-34); MEAN CORPUSCULAR HGB CONC 33.9 g/dl (32-36); MEAN PLATELET VOLUME 10.6 fL (7.4-10.4); NEUT % 69.7 %; PLATELET COUNT 198 K/uL (130-400); RED BLOOD COUNT 3.72 M/uL (4.2-5.4)
[2016-11-05 11:31] LABS: ISTAT CREATININE 0.8 mg/dl (0.6-1.3); ISTAT HEMOGLOBIN 11.2 g/dl (12.0-16.0); ISTAT IONIZED CALCIUM 1.21 mmol/l (1.12-1.32)
--- NOTE | 2016-11-05 11:32 | DIAGNOSTIC IMAGING REPORT ---
CHEST ONE VIEW PORTABLE CLINICAL HISTORY: Chest pain dyspnea COMPARISON STUDY: 10/20/2016 FINDINGS: The bones soft tissues and hemidiaphragms are normal. The cardiomediastinal silhouette is normal. The lungs are clear. The pulmonary vasculature is normal. IMPRESSION: Negative chest. Electronically signed by: Giovanni Xiong M.D. 11/05/2016 11:31 AM Dictated Date/Time: 11/05/2016 11:30 AM
[2016-11-05 11:46] LABS: BUN/CREATININE RATIO 25.2 (10-20); CALCIUM 9.5 mg/dl (8.5-10.1); CREATININE 0.74 mg/dl (0.60-1.20); POTASSIUM 4.3 mmol/L (3.5-5.1)
[2016-11-05 11:51] LABS: CKMB/CK RATIO 0.5 (0-3.0)
[2016-11-05] MEDS ORDERED: DOCU-94 PO (12:05)
[2016-11-05] MEDS ORDERED: GLUCTAB32 PO (12:05)
--- NOTE | 2016-11-05 12:22 | DIAGNOSTIC IMAGING REPORT ---
CHEST CTA for PULMONARY ARTERIES CT DOSE: 495.51 mGycm HISTORY: Chest pain dyspnea TECHNIQUE: Multiaxial CT images of the chest were performed following the intravenous administration of contrast to evaluate the pulmonary arteries. Maximal intensity projection images were also obtained. COMPARISON STUDY: None. FINDINGS: There is a normal caliber thoracic aorta with no evidence for dissection. There is no evidence for pulmonary embolus. No pleural effusions. No pneumothorax. The liver and spleen are unremarkable. No mediastinal or hilar lymphadenopathy. The central airways are patent. The lungs are clear. IMPRESSION: No evidence for pulmonary embolus. Lungs are clear. Electronically signed by: Giovanni Xiong M.D. 11/05/2016 12:20 PM Dictated Date/Time: 11/05/2016 12:17 PM
[2016-11-05] MEDS ORDERED: ASPIRIN 324 MG CHEW PO STA (12:28)
[2016-11-05 13:11] LABS: PROTHROMBIN TIME (PATIENT) 10.5 SECONDS (9.0-12.0)
[2016-11-05] MEDS ORDERED: MoRPHine SULFATE 2 MG/ML CARP IV PRN (13:30)
[2016-11-05] MEDS ORDERED: NITROGLYCERIN 0.4 MG SL PER TAB CHARGE SL PRN (13:30)
[2016-11-05] MEDS ORDERED: MoRPHine SULFATE 4 MG/ML 1 ML CARP\\VIAL IV PRN (13:30)
[2016-11-05] MEDS ORDERED: ONDANSETRON INJ 2 MG/ML 2 ML VIAL IV PRN (13:30)
[2016-11-05] MEDS ORDERED: POLYETHYLENE (MIRALAX) 17 GM PACK PO PRN (13:30)
[2016-11-05] MEDS ORDERED: KETOROLAC TROMETHAMINE 15 MG/ML VIAL IV PRN (13:30)
[2016-11-05] MEDS ORDERED: OXYCODONE HCL IR 5 MG TAB (IMMEDIATE RELEASE) PO PRN (13:30)
[2016-11-05 13:38] LABS: URINE APPEARANCE CLEAR (CLEAR); URINE BILIRUBIN NEG (NEG); URINE COLOR YELLOW; URINE NITRITE NEG (NEG); URINE SPECIFIC GRAVITY 1.023 (1.000-1.030); UROBILINOGEN NEG (NEG); ZZUR CULT IF INDIC CLEAN CATCH NO
[2016-11-05] MEDS ORDERED: PANTOprazole SOD 40 MG TAB PO STA (13:38)
[2016-11-05 13:53] LABS: MANUAL MICROSCOPIC REQUIRED? NO; REVIEW REQ? NO
[2016-11-05] MEDS ORDERED: IV FLUIDS COMPLETED PRN (14:00)
--- NOTE | 2016-11-05 14:20 | HISTORY & PHYSICAL EXAMINATION ---
DATE OF ADMISSION: 11/05/2016 OBSERVATION CHIEF COMPLAINT: Chest pain. ADMITTING DIAGNOSIS: Likely musculoskeletal chest pain or cardiac contusion. HISTORY OF PRESENT ILLNESS: Ms. Bland is a 71-year-old female who was admitted in our facility on October 31 through the with a left humeral fracture after sustaining a fall on some ice. The patient reportedly since that time has been having some chest pain which is deep pinching of breath preventing her to take a deep breath. It is centered over the left chest wall. The patient states that she has also had increasing fatigue. She also did have increasing swelling and tenderness to her arm for which she called Dr. Koch and he recommended elevation and ice. The patient called her family doctor with these complaints today was sent to the Emergency Department for evaluation for possible pulmonary embolism, which was ruled out by CT angiogram. However, while here, the patient did have an elevated troponin of 0.09 and 0.1 on repeat testing. The patient subsequently was recommended for observation. Her EKG; however, does not show any evidence of electrical conduction abnormalities or ST or T-wave changes consistent with pericarditis. She still may have a cardiac contusion. She is resting comfortably. She is very conversant. She also gives a history of having been on a prolonged course of doxycycline over the last few days which has been causing increasing GI distress. PAST MEDICAL HISTORY: For her left shoulder fracture as mentioned, she has a history of breast cancer treated with lumpectomy and radiation treatment in December of [address] Brewer at [place]. She previously has had eyelid surgery. MEDICATIONS: Aspirin 81 daily; her current doxycycline for bronchitis with albuterol inhalers; multivitamins and psyllium. SOCIAL HISTORY: Nonsmoker, nondrinker. FAMILY HISTORY: Positive for heart disease, both in her sister and father. Her sister has a defibrillator implanted. REVIEW OF SYSTEMS: Other than having her bronchitic episode with cough productive of mucus and her recent fall with contusion to her chin, left chest wall pain, left humeral fracture, she has had no other symptoms, complaints or problems such as diaphoresis, nausea. She does not have shortness of breath, but she feels the pain "catches her breath." Her bowel habits have been normal, urinary habits are normal. Ten systems were reviewed and are negative unless listed above. PHYSICAL EXAMINATION: VITAL SIGNS: Temp 36.9, pulse 70, respiration rate is 18, BP 170/72, O2 sat 98% on room air. HEENT: PERRL, EOMI. As mentioned, she has ecchymosis to her chin. NECK: Without lymphadenopathy. The trachea is midline. There is no JVD. HEART: Regular. There is a very slight 1/6 systolic ejection murmur heard at the left lower apex. Her chest wall is tender to palpation including the left parasternal area in the left inferior ribs. Her left arm has a healing incision, there is some postoperative change with induration and edema. There are no axillary nodes. There are no signs of distal compartment syndrome. She has good distal pulses and sensation and capillary refill. LUNGS: Clear without wheezes or crackles. She has good air movement. ABDOMEN: Normoactive bowel sounds, soft. She has got no epigastric tenderness but her lower ribcage is tender. She has no organomegaly, no abdominal bruits. EXTREMITIES: Lower extremities are without cyanosis, clubbing or edema. Surgical changes are mentioned above to the left upper extremity. NEUROLOGICALLY: She is awake, alert and appropriate. Cranial nerves II-XII are intact. Equal symmetrical strength and sensation. LABORATORY DATA: H\\T\\H of 11 and 33, white count is normal. BUN and creatinine are 19 and 0.7. As mentioned, the point of care troponin is elevated, but the serum troponin is pending. Her CK is 362 with normal MB fractions. Normal glucose. Her urinalysis is pending. Coagulation studies are unremarkable. IMAGING DATA: She had a CT angiogram in the ER showing no evidence of pulmonary embolisms and a chest x-ray without evidence of overt rib fractures, but pending rib studies. Her EKG is normal sinus rhythm without acute ST or T-wave changes. ASSESSMENT: A 71-year-old female here with chest pain, just have a reproducible and pleuritic component with an elevated troponin. PLAN: The patient will be observed in our unit. Serial troponins will be undertaken as well as an echocardiogram to evaluate for any cardiac contusion or pericardial injury. If need be, the patient usually sees Dr. Robins as an outpatient for which she was referred for her family history and her heart murmur. Regarding other causes, gastrointestinal could be a cause as the patient with some prolonged doxycycline. She will be given Carafate and Protonix. For the recent bronchitis, the doxycycline will be discontinued which she will be given albuterol-inhaled medication. The patient is a DVT risk given her recent orthopedic surgery I will use enoxaparin for DVT prevention. KARYN
[2016-11-05 14:31] VITALS: BMI 26.0
[2016-11-05 14:33] LABS: CKMB/CK RATIO 0.2 (0-3.0)
[2016-11-05 15:45] VITALS: BP 144/76; PULSE 65; TEMP 36.8; O2SAT 97
[2016-11-05] MEDS: SUCRALFATE 1 GM/10 ML UDC PO SCH ×2 (16:17→19:32)
[2016-11-05] MEDS: ALBUTEROL HFA 8 GM INHALER INH SCH (19:33)
[2016-11-05 20:04] VITALS: BP 150/68; PULSE 70; TEMP 37; O2SAT 97
[2016-11-05] MEDS ORDERED: ENOXAPARIN 40 MG/0.4 ML SYR SC SCH (21:00)
--- NOTE | 2016-11-05 21:13 | DIAGNOSTIC IMAGING REPORT ---
LEFT RIBS UNILATERAL MIN 2 VIEWS CLINICAL HISTORY: Left rib pain status post trauma COMPARISON STUDY: Chest x-ray dated to 817 FINDINGS: No pneumothorax is visualized. No left-sided rib fractures are evident. There are postsurgical changes present within the left shoulder. Surgical clips project over the left chest wall. IMPRESSION: No left-sided rib fractures identified. Electronically signed by: Carlos Chen M.D. 11/05/2016 9:11 PM Dictated Date/Time: 11/05/2016 9:09 PM
[2016-11-05 21:48] LABS: CKMB/CK RATIO 0.2 (0-3.0)
[2016-11-05 23:10] VITALS: BP 132/78; PULSE 69; TEMP 36.9; O2SAT 99
[2016-11-06] MEDS: ACETAMINOPHEN 325 MG TAB PO PRN ×2 (03:05→08:50)
[2016-11-06 03:25] VITALS: BP 150/80; PULSE 66; TEMP 36.7; O2SAT 98
--- NOTE | 2016-11-06 07:12 | DIAGNOSTIC IMAGING REPORT ---
CT OF THE HEAD WITHOUT CONTRAST CLINICAL HISTORY: Headache status post fall. COMPARISON STUDY: Head CT October 31, 2016. CT DOSE: 687.98 mGy.cm TECHNIQUE: Helical axial images of the head were obtained without IV contrast. Automated exposure control was utilized for the study. FINDINGS: No acute intracranial hemorrhage, midline shift or mass effect is present. Ventricular system is normal. Basilar cisterns are patent. No extra axial collections are present. Do-white differentiation is maintained. There are no findings to suggest acute dural sinus thrombosis or acute territorial infarct. There is no calvarial fracture. There is a tiny air-fluid level within the right maxillary sinus. Mastoid air cells are clear. IMPRESSION: 1. No acute intracranial findings. 2. No calvarial fracture. Electronically signed by: Pj Hunter M.D. 11/06/2016 7:11 AM Dictated Date/Time: 11/06/2016 7:08 AM
[2016-11-06 07:31] VITALS: BP 148/71; PULSE 58; TEMP 37; O2SAT 97
[2016-11-06 07:42] LABS: BUN/CREATININE RATIO 22.7 (10-20); CALCIUM 8.9 mg/dl (8.5-10.1); CREATININE 0.79 mg/dl (0.60-1.20); POTASSIUM 4.2 mmol/L (3.5-5.1)
[2016-11-06] MEDS ORDERED: LORAZEPAM 2 MG/ML 1 ML VIAL ONE (07:59)
[2016-11-06] MEDS: SUCRALFATE 1 GM/10 ML UDC PO SCH ×2 (08:20→12:28)
[2016-11-06] MEDS: ALBUTEROL HFA 8 GM INHALER INH SCH (08:21)
[2016-11-06] MEDS ORDERED: PANTOprazole SOD 40 MG TAB PO SCH (09:00)
[2016-11-06 09:36] VITALS: BP 165/76; PULSE 71; O2SAT 97
[2016-11-06 11:30] VITALS: BP 133/73; PULSE 68; TEMP 36.5; O2SAT 98
[2016-11-06] MEDS ORDERED: PANT40TA PO (13:40)
--- NOTE | 2016-11-06 13:41 | Discharge Instructions ---
Discharge Instructions Admission Reason for Admission: Elevated Troponin Discharge Discharge Diagnosis / Problem: musculoskeletal chest pain Discharge Goals Goal(s): Diagnostic testing, Therapeutic intervention Activity Recommendations Activity Limitations: as noted below (follow up as per Dr Lindsey instructions ) Exercise/Sports Limitations: until after follow-up appointment Shower/Bathe: keep incision dry . Current Hospital Diet Patient's current hospital diet: AHA Diet (Heart Healthy) Discharge Diet Recommended Diet: Regular Diet Pending Studies Studies pending at discharge: yes List of pending studies: final cardiac echo reading Medical Emergencies . Who to Call and When: Medical Emergencies: If at any time you feel your situation is an emergency, please call 911 immediately. . Non-Emergent Contact Non-Emergency issues call your: Primary Care Provider . . "Provider Documentation" section prepared by Aroldo You. VTE Core Measure Inpt VTE Proph given/why not?: Enoxaparin (Lovenox)SQ
--- NOTE | 2016-11-06 13:56 | ECHOCARDIOGRAM REPORT ---
*NOTICE TO RECEIVING DEMOCRAT AGENCY This information is strictly Confidential and protected under [place] law. [place] law prohibits you from making any further disclosure of this information unless further disclosure is expressly permitted by the written consent of the person to whom it pertains or is authorized by law. A general authorization for the release of medical or other information is not sufficient for this purpose. Hospital accepts no responsibility if the information is made available to any other person, INCLUDING THE PATIENT. Interpretation Summary * Name: WILLIAM HERNANDEZ Study Date: 11/06/2016 07:44 AM BP: 148/71 mmHg * Patient Location: C.2T\S\S242\S\1 HR: 58 * : 1945 (M/d/yyyy) Gender: Female Height: 67 in * Age: 71 yrs Ethnicity: CA Weight: 166 lb * Ordering Physician: Aroldo You * Referring Physician: Ariel Lin * Performed By: Scottie Barriga RCS * * Reason For Study: Chest Pain * BSA: 1.9 m2 * -- Conclusions -- * Left ventricular systolic function is normal. * No regional wall motion abnormalities noted. * Ejection Fraction = 60-65%. * There is borderline concentric left ventricular hypertrophy. * Grade I diastolic dysfunction, (abnormal relaxation pattern). * Mild aortic regurgitation. * Mild tricuspid regurgitation. Procedure Details * A complete two-dimensional transthoracic echocardiogram was performed (2D, M-mode, Doppler and color flow Doppler). Left Ventricle * The left ventricle is normal in size. * There is borderline concentric left ventricular hypertrophy. * Ejection Fraction = 60-65%. * Left ventricular systolic function is normal. * No regional wall motion abnormalities noted. Right Ventricle * The right ventricle is not well visualized. * The right ventricular systolic function is normal as assessed by tricuspid annular plane systolic excursion (TAPSE) (normal >1.5 cm). Atria * The left atrial size is normal. * Right atrial size is normal. * There is no evidence of atrial septal defect, but resolution does not allow assessment for a patent foramen ovale. Mitral Valve * The mitral valve is grossly normal. * There is no mitral valve stenosis. * There is mild mitral regurgitation. Tricuspid Valve * The tricuspid valve is not well visualized, but is grossly normal. * There is mild tricuspid regurgitation. Aortic Valve * The aortic valve is trileaflet. * The aortic valve opens well. * Aortic valve sclerosis mild, without significant aortic valvular stenosis. * No hemodynamically significant valvular aortic stenosis. * Mild aortic regurgitation. Pulmonic Valve * The pulmonic valve is not well visualized. * There is no significant pulmonary regurgitation. Great Vessels * The aortic root is normal size. * The pulmonary artery is not well visualized, but is probably normal size. Pericardium/Pleural * There is no pericardial effusion. Great Vessels * Normal inferior vena cava size and collapsability with sniff indicates a normal right atrial pressure of 3 mmHg Left Ventricular Diastolic Function * Grade I diastolic dysfunction, (abnormal relaxation pattern). MMode 2D Measurements and Calculations IVSd 0.86 cm IVSs 1.2 cm LVIDd 4.2 cm LVIDs 2.7 cm LVPWd 0.95 cm LVPWs 1.3 cm IVS/LVPW 0.90 FS 35.1 % EDV(Teich) 76.9 ml ESV(Teich) 27.0 ml EF(Teich) 64.9 % EDV(cubed) 72.1 ml ESV(cubed) 19.7 ml EF(cubed) 72.7 % % IVS thick 36.6 % % LVPW thick 32.9 % LV mass(C)d 117.9 grams LV mass(C)dI 63.1 grams/m\S\2 LV mass(C)s 97.1 grams LV mass(C)sI 52.0 grams/m\S\2 CO(Teich) 3.0 l/min CI(Teich) 1.6 l/min/m\S\2 SV(Teich) 49.9 ml SI(Teich) 26.7 ml/m\S\2 CO(cubed) 3.2 l/min CI(cubed) 1.7 l/min/m\S\2 SV(cubed) 52.4 ml SI(cubed) 28.1 ml/m\S\2 Ao root diam 3.4 cm Ao root area 9.1 cm\S\2 ACS 1.4 cm LA dimension 3.7 cm LA/Ao 1.1 LVAd ap4 31.6 cm\S\2 LVLd ap4 9.1 cm EDV(MOD-sp4) 91.0 ml LVAs ap4 17.2 cm\S\2 LVLs ap4 7.4 cm ESV(MOD-sp4) 35.0 ml EF(MOD-sp4) 61.5 % LVAd ap2 27.9 cm\S\2 LVLd ap2 8.8 cm EDV(MOD-sp2) 73.0 ml LVAs ap2 16.1 cm\S\2 LVLs ap2 7.5 cm ESV(MOD-sp2) 30.0 ml EF(MOD-sp2) 58.9 % CO(MOD-sp4) 3.4 l/min CI(MOD-sp4) 1.8 l/min/m\S\2 SV(MOD-sp4) 56.0 ml SI(MOD-sp4) 30.0 ml/m\S\2 CO(MOD-sp2) 2.6 l/min CI(MOD-sp2) 1.4 l/min/m\S\2 SV(MOD-sp2) 43.0 ml SI(MOD-sp2) 23.0 ml/m\S\2 Doppler Measurements and Calculations MV E max bradley 74.9 cm/sec MV A max bradley 94.8 cm/sec MV E/A 0.79 MV P1/2t max bradley 93.6 cm/sec MV P1/2t 81.7 msec MVA(P1/2t) 2.7 cm\S\2 MV dec slope 335.6 cm/sec\S\2 MV dec time 0.17 sec Ao V2 max 101.5 cm/sec Ao max PG 4.1 mmHg Ao max PG (full) 1.9 mmHg AI max bradley 416.3 cm/sec AI max PG 69.3 mmHg AI dec slope 136.6 cm/sec\S\2 AI P1/2t 892.7 msec LV V1 max PG 2.3 mmHg LV V1 max 75.3 cm/sec PA V2 max 96.5 cm/sec PA max PG 3.7 mmHg PI max bradley 221.3 cm/sec PI max PG 19.6 mmHg PI dec slope 202.6 cm/sec\S\2 PI P1/2t 319.9 msec TR max bradley 238.5 cm/sec
[2016-11-06 14:04] VITALS: BP 133/73; PULSE 68; TEMP 36.5; O2SAT 98
--- NOTE | 2016-11-06 16:59 | ORTHOPEDIC CONSULTATION ---
DATE OF CONSULTATION: 11/06/2016 DATE OF CONSULTATION: 11/06/2016. CHIEF COMPLAINT: One week status post open reduction and internal fixation of the left humeral shaft. HISTORY OF PRESENT ILLNESS: Ana is a pleasant 71-year-old female who I did an ORIF of her left humeral shaft last week. She is doing well with that. Unfortunately, she was having some heart palpitations and some chest tightness. She was admitted to the medical service. Orthopedics was consulted just to evaluate the wound to make sure her sling placement is okay. PHYSICAL EXAMINATION: There is some swelling and ecchymosis around her arm and her elbow as to be expected. She is wearing her sling as instructed. I did remove a Telfa dressing, but overall everything looks good. Her radial, median, ulnar and axillary nerves were all checked and intact. IMPRESSION: One week status post open reduction and internal fixation of the left humeral shaft. PLAN: At this point everything looks good. I plan to see her in the office in about 5 days. I told her it would take several weeks for the swelling to go down completely and she understands that. She is planning on being discharged today after negative workup for her chest pains.
--- NOTE | 2016-11-06 17:13 | Discharge Summary ---
Discharge Summary Admission Date: Nov 05, 2016 at 13:23 Discharge Date: Nov 06, 2016 Discharge Disposition: Home Principal Diagnosis: elevated troponin but musculoskeletal chest pain Procedures: Echocardiogram, normal EF no acute changes Medication Reconciliation New Medications: Pantoprazole (Protonix) 40 Mg Tab 40 MG PO DAILY, #30 TAB Continued Medications: Aspirin (Aspirin Chewable) 81 Mg Chew 81 MG PO DAILY, TAB Cholecalciferol (Vitamin D-3) 400 Unit Tab DAILY Cranberry-Vitamin C-Vitamin E (Cranberry Super Strength) 1 Cap Cap DAILY Docusate Sodium (Colace) 100 Mg Cap 1 CAP PO BID, CAP Ezassfvmwzb-Ucqqvimkguj-We Cho (Glucosamine Chondroitin &) 1 Tab Tab 1 TAB PO DAILY Multivitamin (Multivitamin) Tab 1 TAB PO DAILY, TAB Discontinued Medications: Doxycycline Monohydrate (Monodox) 100 Mg Cap 100 MG PO BID, CAP Discharge Exam Review of Systems: Constitutional: No chills, No fatigue, No fever, No weakness Respiratory: No cough, No dyspnea at rest, No dyspnea on exertion, No shortness of breath, No sputum, No wheezing Cardiovascular: + chest pain, No PND, No edema, No orthopnea Abdomen: No diarrhea, No nausea, No pain, No vomiting Musculoskeletal: + joint pain, + muscle pain Genitourinary - Female: No dysuria, No hematuria Psychiatric: No anhedonism, No depression symptoms Physical Exam: General Appearance: WD/WN, no apparent distress Eyes: PERRL, EOMI Neck: supple, no JVD Respiratory/Chest: chest non-tender, lungs clear, normal breath sounds Cardiovascular: regular rate, rhythm, no murmur Abdomen / GI: normal bowel sounds, non tender, soft Extremities: no pedal edema, normal range of motion Neurologic/Psychiatric: alert, oriented x 3 Hospital Course 71 F admitted after some worsened chest pain, originally with fall 2/4 and left shoulder fracture with repair, chin contusion. did have negative CTA on presentation to rule out PE, no rib fractures on CXR, normal ECG but elevated troponin, normal echo, but suspect troponin was from cardiac contusion from fall, was able to ambulate in unit without pain and pain not positional to think of pericarditis. Did have 2 CT head due to complaint of head ache with recurrence, both negative since was also on doxycycline, will give ppi as some chest pain could be from gastritis/esophagitis follow up with Dr Lin next week Total Time Spent: Greater than 30 minutes This includes examination of the patient, discharge planning, medication reconciliation, and communication with other providers. Discharge Instructions Please refer to the electronic Patient Visit Report (Discharge Instructions) for additional information.
[2016-11-27] MEDS ORDERED: COEN1CAP17 PO (14:21)
[2016-11-27] MEDS ORDERED: ROSU5TAB PO (14:21)
[2016-11-27] MEDS ORDERED: PANT40TA PO (14:21)
[2016-11-27] MEDS ORDERED: PSYL0.524 PO (14:21)
--- NOTE | 2016-12-08 07:04 | CARDIOLOGY CONSULTATION ---
DATE OF CONSULTATION: 11/06/2016 This is in reference to an order for a consultation on Ana Bland, in discussion with Dr. You who is the admitting physician, he did not feel that a cardiology consultation was warranted after her short hospitalization and an echocardiogram that revealed normal biventricular size and function. In light of that, a consultation was not completed, the order must not have been removed from the computer system.
== END 2016-11-06 14:30 | disposition home or self-care (01) ==
LOC: ENRESERVTM → ENRESERVDT → C.EDB 10:34 → C.2T 13:23
PROVIDERS: ADMIT Internal Medicine; ATTEND Internal Medicine
DX: R07.89 Other chest pain (principal); Z79.82 Long term (current) use of aspirin; Z85.3 Personal history of malignant neoplasm of breast; Z82.49 Family history of ischemic heart disease and other diseases of the circulatory system

== ENCOUNTER → 2016-11-27 | Outpatient (CLI) | payer BC ==
[2016-05-22 14:59] VITALS: BP 145/77; PULSE 63
[~2016-11-27] MED LIST changes: +COEN1CAP17 PO; +DOCU-94 PO; -DOXY100C76 PO; -GLUC10007 PO; +GLUCTAB32 PO; +MISC-573; -OXYC-57 PO; +PANT40TA PO; +PSYL0.524 PO; -PSYL55.43 PO; +ROSU5TAB PO
[2016-11-27 14:07] VITALS: BP 128/66; PULSE 81; TEMP 36.5; O2SAT 95
--- NOTE | 2016-11-27 16:25 | Radiation Oncology Follow-Up ---
Radiation Oncology Follow-Up Date of Visit Nov 27, 2016. 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 Last Edited By: Cara Glez on May 22, 2016 16:32 History of Present Illness Ms. Bland is a 71-year-old female who had been followed with annual screening mammograms. The mammogram was not performed in 2014 and her most recent bilateral digital screening mammogram was on 01/16/2016. This showed newly visualized small cluster of calcifications in the left upper outer quadrant with spot magnification views recommended. Additionally there was a possible moldable 8mm mass seen within the right central breast recommendation for spot compression views and possible breast ultrasound for further evaluation. On the patient underwent bilateral digital diagnostic mammogram and targeted right breast ultrasound. The spot compression views of the right breast demonstrated a possible moldable partially circumscribed and partially obscured 7 mm mass in the right lower outer quadrant anteriorly. Targeted ultrasound of the right lower outer quadrant showed mild duct ectasia with no suspicious masses or other suspicious sonographic abnormalities evident. Spot magnification view of the left breast demonstrated a small 2 mm cluster of punctate calcifications in the left upper outer quadrant which were not clearly evident on prior exams. Given that this cluster is new and indeterminant a stereotactic biopsy was recommended. A small 1 mm cluster calcifications seen more medially in the breast on spot magnification cc Jannet was stable compared to prior exams and considered benign. On 01/30/2016 the patient underwent a stereotactic guided biopsy of the left breast. 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 4 separate foci were noted measuring 0.25 x 0.1 cm, 0.5 x 0.2 cm, 0.1 cm and 0.1 cm. Calcifications were present and associated with DCIS. Estrogen receptors were positive (60%, 30% strong and 30% week). Progesterone receptors were negative (0% staining). No invasive carcinoma was identified. Case: [id number]. Patient was seen by Dr. Brewer who discussed surgical treatment options. He discussed breast conserving therapy with the patient who agreed. She was therefore scheduled for and underwent a left partial mastectomy on 02/18/2016. This revealed residual DCIS that was present in most of the sections submitted. The estimate of the size of the DCIS was 2.5 cm. This was a nuclear grade 3 with comedonecrosis present. The deep margin is suspicious for involvement by DCIS. On 1 section the DCIS is present in the duct immediately adjacent to the final deep margin though the cells within the duct itself did not extend on to the inked margin surface. Another section showed an area of deep margin which is torn and fragmented with DCIS immediately nearby. Finally there are a few irregular cauterized ducts at the deep margin which could represent cauterized DCIS. The DCIS was also located 0.1 cm away from the inferior margin. Case: [id number]. Dr. Brewer proceeded with a reexcision of the margins on 03/17/2016. The left breast deep margin showed fat necrosis with no tumor seen. The left breast deeper margin also showed no tumor. Case: [id number]. Thus the final pathologic stage is pTis, ER positive and IA negative. Dr. Brewer discussed potential adjuvant antiestrogen therapy with the patient. She has concerns based on the potential increased risk of uterine cancer. At the present time she stated she is leaning away from considering adjuvant antiestrogen therapy although a final decision has not yet been made. We were asked to see the patient in referral to discuss with her the role of adjuvant radiation. It is for this reason the patient is seen in referral. She underwent a CT simulation and was found to be a candidate for accelerated partial breast irradiation. This was completed 04/18/2016. She received 3850 cGy Interim History She has been doing well over the past 6 months in regards to her radiation therapy. She denies any discomfort in the area of treatment. She has noted no masses or tenderness and no change of the axilla. She is up-to-date on mammography. She had a mammogram 08/16/2016. This showed expected postsurgical changes in the left breast, without definite mammographic evidence of malignancy. Recommend a six-month follow-up left breast mammogram including repeat spot magnification views to ensure stability at one year after treatment. A right mammography will be due at that time. She unfortunately fell on the ice and fractured her left humerus. She is steadily recuperating and required open reduction internal fixation. Allergies Coded Allergies: Nitrates, Organic (Unverified Allergy, Mild, 11/05/16) Nitrofurantoin (Unverified Allergy, Mild, 11/05/16) Ciprofloxacin (Verified Allergy, Unknown, HEART RACING, WARM FEELING, ) Uncoded Allergies: BLADDER INF MED (Allergy, Mild, 10/09/07) Home Medications Scheduled Aspirin (Aspirin Chewable), 81 MG PO DAILY Cholecalciferol (Vitamin D-3), DAILY Coenzyme Q10 (Ubidecarenone) (Co Q 10), 1 CAP PO DAILY Cranberry-Vitamin C-Vitamin E (Cranberry Super Strength), DAILY Gmdtuvhyrks-Kwmtgzjtdwv-Td Cho (Glucosamine Chondroitin &), 1 TAB PO DAILY Multivitamin (Multivitamin), 1 TAB PO DAILY Psyllium (Metamucil), 1 CAP PO DAILY Rosuvastatin Calcium (Crestor), 1 TAB PO DAILY Scheduled PRN Pantoprazole (Protonix), 40 MG PO DAILY PRN for reflux Review of Systems Gastrointestinal: Symptoms: WNL Oral: Symptoms: No Problems Respiratory: Symptoms: WNL Urinary: Symptoms: WNL Skin: Symptoms: No Problems Breast: Right Upper Arm Measurement: 27.6 Right Mid Arm Measurement: 21.7 Right Wrist Measurement: 15.2 Left Upper Arm Measurement: 29.4 Left Mid Arm Measurement: 22.5 Left Wrist Measurement: 14.3 Arm Dominence: Right Physical Exam Vital Signs Date Time Temp Pulse Resp B/P Pulse Ox O2 Delivery O2 Flow Rate FiO2 11/27/16 14:07 36.5 81 16 128/66 95 Pain: Patient Pain Scale: 0 - 10 Initial Pain Intensity: 0.0 Additional Comments: Gets occasional twinge in left breast Fatigue: None General Appearance: no apparent distress Eyes: normal inspection, EOMI ENT: normal ENT inspection, hearing grossly normal Neck: no adenopathy, thyroid normal Respiratory/Chest: lungs clear, no respiratory distress, no accessory muscle use Breast: Breast examination reveals well-healed incision of the left breast. There are no masses or tenderness and no axillary adenopathy. She has no skin retractions or nipple changes. Using the [place] score cosmesis she has a excellent outcome. The right breast showed no masses or tenderness and no axillary adenopathy. Cardiovascular: regular rate, rhythm, no gallop, no murmur Abdomen: non tender, soft, no organomegaly Extremities: no pedal edema, + pertinent finding (well-healed incision of the anterior upper left arm.) Neurologic/Psychiatric: no motor/sensory deficits, alert, normal mood/affect Laboratory Studies Test 10/31/16 10:40 11/05/16 11:10 11/05/16 11:13 11/05/16 11:22 White Blood Count 9.25 K/uL (4.8-10.8) 7.80 K/uL (4.8-10.8) Red Blood Count 4.62 M/uL (4.2-5.4) 3.72 M/uL (4.2-5.4) Hemoglobin 14.2 g/dL (12.0-16.0) 11.4 g/dL (12.0-16.0) Hematocrit 41.5 % (37-47) 33.6 % (37-47) Mean Corpuscular Volume 89.8 fL (80-100) 90.3 fL (80-100) Mean Corpuscular Hemoglobin 30.7 pg (25-34) 30.6 pg (25-34) Mean Corpuscular Hemoglobin Concent 34.2 g/dl (32-36) 33.9 g/dl (32-36) RDW Standard Deviation 42.5 fL (36.4-46.3) 43.0 fL (36.4-46.3) RDW Coefficient of Variation 13.1 % (11.5-14.5) 13.1 % (11.5-14.5) Platelet Count 244 K/uL (130-400) 198 K/uL (130-400) Mean Platelet Volume 10.2 fL (7.4-10.4) 10.6 fL (7.4-10.4) Neutrophils (%) (Auto) 69.7 % Lymphocytes (%) (Auto) 22.6 % Monocytes (%) (Auto) 5.0 % Eosinophils (%) (Auto) 1.9 % Basophils (%) (Auto) 0.5 % Neutrophils # (Auto) 5.44 K/uL (1.4-6.5) Lymphocytes # (Auto) 1.76 K/uL (1.2-3.4) Monocytes # (Auto) 0.39 K/uL (0.11-0.59) Eosinophils # (Auto) 0.15 K/uL (0-0.5) Basophils # (Auto) 0.04 K/uL (0-0.2) Immature Granulocyte % (Auto) 0.3 % Immature Granulocyte # (Auto) 0.02 K/uL (0.00-0.02) Prothrombin Time 10.5 SECONDS (9.0-12.0) Prothrombin Time INR 1.0 (0.9-1.1) PTT 24.9 SECONDS (21.0-31.0) Partial Thromboplastin Ratio 1.0 Sodium Level 140 mmol/L (136-145) Potassium Level 4.3 mmol/L (3.5-5.1) Chloride Level 106 mmol/L (98-107) Carbon Dioxide Level 26 mmol/L (21-32) Blood Urea Nitrogen 19 mg/dl (7-18) Creatinine 0.74 mg/dl (0.60-1.20) Est Creatinine Clear Calc Drug Dose 76.0 ml/min Estimated GFR () 95.8 Estimated GFR (Non- 82.7 BUN/Creatinine Ratio 25.2 (10-20) Random Glucose 92 mg/dl (70-99) Calcium Level 9.5 mg/dl (8.5-10.1) Total Bilirubin 0.5 mg/dl (0.2-1) Aspartate Amino Transferase (AST) 27 U/L (15-37) Alanine Aminotransferase (ALT) 20 U/L (12-78) Alkaline Phosphatase 55 U/L (45-117) Total Protein 6.5 gm/dl (6.4-8.2) Albumin 3.3 gm/dl (3.4-5.0) Globulin 3.2 gm/dl (2.5-4.0) Albumin/Globulin Ratio 1.0 (0.9-2) Hepatitis C Antibody Screen NEG (NEG) POC Hemoglobin 11.2 g/dl (12.0-16.0) POC Hematocrit 33 % (37-47) POC Sodium 138 mEq/L (135-144) POC Potassium 4.4 mEq/L (3.3-5.0) POC Chloride 102 mEq/L (101-112) POC Total CO2 26 mEq/l (24-31) Anion Gap 15.0 mmol/L (16-25) POC Blood Urea Nitrogen 20 mg/dl (7-18) POC Creatinine 0.8 mg/dl (0.6-1.3) POC Glucose 96 mg/dl (70-99) POC Ionized Calcium (Miller) 1.21 mmol/l (1.12-1.32) POC Troponin I 0.090 ng/ml (0-0.045) Test 11/05/16 13:18 11/05/16 13:28 11/05/16 13:55 11/05/16 21:10 POC Troponin I 0.100 ng/ml (0-0.045) Urine Color YELLOW Urine Appearance CLEAR (CLEAR) Urine pH 6.0 (4.5-7.5) Urine Specific [place] 1.023 (1.000-1.030) Urine Protein NEG (NEG) Urine Glucose (UA) NEG (NEG) Urine Ketones NEG (NEG) Urine Occult Blood NEG (NEG) Urine Nitrite NEG (NEG) Urine Bilirubin NEG (NEG) Urine Urobilinogen NEG (NEG) Urine Leukocyte Esterase NEG (NEG) Total Creatine Kinase 341 U/L (26-192) 376 U/L (26-192) Creatine Kinase MB 0.8 ng/ml (0.5-3.6) 0.7 ng/ml (0.5-3.6) Creatine Kinase MB Ratio 0.2 (0-3.0) 0.2 (0-3.0) Troponin I 0.131 ng/ml (0-0.045) 0.096 ng/ml (0-0.045) Test 11/06/16 06:45 Sodium Level 139 mmol/L (136-145) Potassium Level 4.2 mmol/L (3.5-5.1) Chloride Level 105 mmol/L (98-107) Carbon Dioxide Level 27 mmol/L (21-32) Anion Gap 7.0 mmol/L (3-11) Blood Urea Nitrogen 18 mg/dl (7-18) Creatinine 0.79 mg/dl (0.60-1.20) Est Creatinine Clear Calc Drug Dose 71.1 ml/min Estimated GFR () 88.5 Estimated GFR (Non- 76.4 BUN/Creatinine Ratio 22.7 (10-20) Random Glucose 96 mg/dl (70-99) Calcium Level 8.9 mg/dl (8.5-10.1) Additional Studies Patient: WILLIAM BLAND [facility] Rec: [id number] Address[address]: [address] [id number] Date: 1945 Sex: F Ref Phy: Randell Brewer M.D. Att Phy: Cara Glez PA-C Ingrid Phy: Ariel Lin M.D. Inter Phy: Ludmila Melendez MD [facility] Zip: [place] [address] SC: C.MAMM Report #: [id number] Pharmaceutical Service Representative: SHARMIN Diagnosis: F/U LEFT STATUS POST RADIATION Service Date: 08/06/16 MNE: [id number] Ordering Dr: Cara Glez PA-C CC: Cara Glez PA-C CONF: DICTATED BY: Ludmila Melendez MD MAMMOGRAPHY REPORT UNILATERAL LEFT DIGITAL DIAGNOSTIC MAMMOGRAM TOMOSYNTHESIS WITH CAD: 08/06/2016 CLINICAL HISTORY: Patient presents for new baseline evaluation of the left breast status post treatment for DCIS. TECHNIQUE: Left CC and MLO 2-D digital and tomosynthesis images, left XCCL, spot magnification CC and ML views were obtained. Current study was also evaluated with a Computer Aided Detection (CAD) system. COMPARISON: Comparison is made to exams dated: 01/30/2016 mammogram, 01/30/2016 stereotactic biopsy, 01/21/2016 mammogram, 01/16/2016 mammogram, and 01/21/2016 [place] [facility] - [facility]. BREAST COMPOSITION: There are scattered areas of fibroglandular density in the left breast. FINDINGS: There is new expected architectural distortion with associated surgical clips in the upper outer posterior left breast, at the site of recent lumpectomy. There is a tiny 9 mm cluster of punctate microcalcifications inferior and medial to the surgical site, which has been present and is stable on prior available mammograms dating back to at least 10/07/2010 and with 5 years of stability is considered benign. No new suspicious mass, architectural distortion or cluster of microcalcifications is seen throughout the left breast. IMPRESSION: IMPRESSION: ACR-BI-RADS CATEGORY 3: PROBABLY BENIGN Expected post-therapeutic changes in the left breast, without definite mammographic evidence of malignancy. Recommend a six-month follow-up left mammogram including repeat spot magnification views to ensure stability 1 year after treatment. Annual right mammography will be due at that time. These results and recommendations were discussed with the patient at the time of the exam. Approximately 10% of breast cancers are not detected with mammography. A negative mammographic report should not delay biopsy if a clinically suggestive mass is present. Ludmila Melendez M.D. ay/:08/06/2016 09:42:54 Computer Science Intern: Silvia GEORGE)([place]), [facility] letter sent: Follow Up Recommended 3 BI-RADS Code: ACR-BI-RADS Category 3: Probably Benign Dictated by: Ludmila Melendez MD Signed by: Ludmila Melendez MD Assessment & Plan Plan: Continue with scheduled mammography. She has a digital diagnostic mammogram scheduled for January. This will be a bilateral mammogram. Continue regular follow-up with Dr. Brewer and her primary care physician. We asked her to return to our office in 1 year. She may call if she has any questions or concerns in the interim. Total Time In Follow-Up I spent 20 minutes speaking to the patient performing examination. I spent 15 minutes reviewing information in completing this note. Copy To Randell Brewer M.D.; Ariel Lin M.D.
== END | disposition home or self-care (01) ==
LOC: C.ONC 14:01
PROVIDERS: ATTEND Physician Assistant Medical
DX: Z08 Encounter for follow-up examination after completed treatment for malignant neoplasm (principal); Z92.3 Personal history of irradiation; Z85.3 Personal history of malignant neoplasm of breast

== ENCOUNTER 2017-01-04 08:53 | Emergency (ER) | payer BC ==
[~2017-01-04] VITALS: Ht 171.5 cm; Wt 73.0 kg
[~2017-01-04 08:53] MED LIST changes: -DOCU-94 PO; -MISC-573
[2017-01-04 08:57] VITALS: TEMP 36.4; Ht 171.5 cm; Wt 73.0 kg
--- NOTE | 2017-01-04 09:55 | DIAGNOSTIC IMAGING REPORT ---
RIGHT KNEE 3 VIEWS CLINICAL HISTORY: Right knee pain. COMPARISON: Right knee radiographs October 31, 2016. FINDINGS: Alignment of the right knee is anatomic. There is no acute fracture or suspicious lesion. There is spurring of the patella at the insertion of quadriceps. No joint effusion is identified. Mild prepatellar soft tissue swelling is present. There is mild osteophytosis of the right knee with preserved joint spaces. IMPRESSION: 1. No acute fracture. 2. Mild prepatellar soft tissue swelling. Electronically signed by: Pj Hunter M.D. 01/04/2017 9:53 AM Dictated Date/Time: 01/04/2017 9:51 AM
[2017-01-04] MEDS ORDERED: MISC-573 (10:25)
[2017-01-04 10:35] VITALS: BP 141/74; PULSE 88; O2SAT 96
--- NOTE | 2017-01-04 16:06 | EMERGENCY ROOM VISIT NOTE ---
ED Visit Note First contact with patient: 09:02 CHIEF COMPLAINT: Right knee pain HISTORY OF PRESENT ILLNESS: This 71-year-old white female patient presents with her with complaints of right pain that have been present intermittently since September. Patient fell at that time. She sustained a left humeral fracture that required ORIF. She has been seeing Dr. Koch for this. She notes the right knee has been intermittently painful. It seems to explain based on activity. She was walking yesterday and had a significant increase in her medial knee pain. She denies any catching or locking. No buckling. Pain is worse with weight-bearing. She had difficulty sleeping last night and was woken with pain several times. She tried to put a pillow under the knee which did not help. She denies any swelling. Pain is primarily medial. No numbness or tingling. No new x-rays since her films in September. REVIEW OF SYSTEM: HEENT: No dizziness, visual problems, hearing loss, or tinnitus. There is no difficulty swallowing and no oral lesions are present. PULMONARY: No cough, shortness of breath, sputum production or hemoptysis. CARDIOVASCULAR: No chest pain, palpitations, shortness of breath or peripheral edema. GASTROINTESTINAL: No diarrhea, constipation, nausea, vomiting, or abdominal pain. GENITOURINARY: No dysuria, frequency, urgency or nocturia. NEUROLOGIC: No weakness, muscle tenderness, epilepsy or history of neurological problems. MUSCULOSKELETAL: No history of joint tenderness/swelling. Positive history of arthritis and arthralgias. SKIN: No rashes or lesions. PSYCHIATRIC: No history of depression or mental illness. ENDOCRINE: No history of diabetes, thyroid disorders, or abnormal hair growth. PMH: Unremarkable. Previous surgeries: Left humeral ORIF SOCIAL HISTORY: Patient lives at home. Retired. . No tobacco use. Occasional EtOH use. Family history: Significant for heart disease and hypertension. Parents are . Current medications: Reviewed and filed in patient's chart Allergies: Cipro, nitrates, Macrobid, ginkgo PHYSICAL EXAM: Vital Signs: Reviewed Nurse's notes. Afebrile. MENTAL STATUS: Alert, oriented, and cooperative. General: Well-developed, well-nourished, elderly white female, in no acute distress. Laying on a bed. Skin: Warm and dry with good turgor. No rashes or lesions. No ecchymosis or erythema. The patient is not diaphoretic. No abrasions. Musculoskeletal: There is no joint effusion. She has valgus Gillis. She has focal pain with palpation over the medial joint. No lateral joint line discomfort today. Full baby aspirin she lacks just a few degrees of terminal extension and flexion greater than 90 with discomfort. There is no ligamentous instability. No defect in the patellar tendon or quadriceps tendon. There is medial joint line pain with circumduction testing. The patient walks with an antalgic gait. Neurologic: Gross sensation is intact across the right leg by soft touch. Peripheral pulses are 2+. EMERGENCY DEPARTMENT COURSE: X-ray does not show any fractures or fluid in the joint. Mild arthritic change with medial joint space narrowing and small periarticular osteophytes. This was read by radiology. DIAGNOSIS: Right medial knee pain DISCHARGE INSTRUCTIONS: Patient was educated regarding today's findings. Conservative care measures were discussed. Ice and elevation to the knee frequently for the next 72 hours. She may also benefit from compression such as an Chuck wrap. Option of cortisone injections was discussed with the patient. She will follow-up with Dr. Koch to discuss this further. Use a cane or walker for assistance as she was limping and has pain. Perception was provided. Tylenol and Motrin every 6 hours as needed for discomfort. Stay off the leg as much as possible and return to the ED for any other concerns. 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 Status: Resolved Surgical Problems: (1) H/O shoulder surgery Status: Resolved Current/Historical Medications Scheduled Aspirin (Aspirin Chewable), 81 MG PO DAILY Cholecalciferol (Vitamin D-3), DAILY Coenzyme Q10 (Ubidecarenone) (Co Q 10), 1 CAP PO DAILY Cranberry-Vitamin C-Vitamin E (Cranberry Super Strength), DAILY Lfleyygsjsc-Yxydhoqqbdm-Ux Cho (Glucosamine Chondroitin &), 1 TAB PO DAILY Multivitamin (Multivitamin), 1 TAB PO DAILY Psyllium (Metamucil), 1 CAP PO DAILY Rosuvastatin Calcium (Crestor), 1 TAB PO DAILY Scheduled PRN Pantoprazole (Protonix), 40 MG PO DAILY PRN for reflux Allergies Coded Allergies: Nitrates, Organic (Unverified Allergy, Mild, 01/04/17) Nitrofurantoin (Unverified Allergy, Mild, 01/04/17) Ciprofloxacin (Verified Allergy, Unknown, HEART RACING, WARM FEELING, ) Uncoded Allergies: BLADDER INF MED (Allergy, Mild, 10/09/07) Vital Signs Date Time Temp Pulse Resp B/P Pulse Ox O2 Delivery O2 Flow Rate FiO2 01/04/17 10:35 88 16 141/74 96 01/04/17 10:01 88 16 141/74 96 Room Air 01/04/17 08:57 36.4 76 18 144/83 96 Room Air Departure Information Impression Primary Impression: Right medial knee pain Dispostion Home / Self-Care Prescriptions Misc. Devices (ROLLER WALKER) 1 Mis Mis EA UNKNOWN DAILY, #1 Prov: Clayton Griffin,P.A. 01/04/17 Referrals Darin Koch, DO Forms HOME CARE DOCUMENTATION FORM, MOTRIN USE, TYLENOL USE, IMPORTANT VISIT INFORMATION Patient Instructions My [employer] Additional Instructions Ice and elevate the knee frequently to reduce pain and swelling Call Dr. Koch tomorrow for follow-up this week Consider cortisone injections or viscous supplementation injection for the knee Tylenol and Motrin every 6 hours as needed for discomfort Use a walker or cane to assist ambulation
== END 2017-01-04 10:35 | disposition home or self-care (01) ==
LOC: C.EDB 08:55 → C.EDA 10:35
DX: M25.561 Pain in right knee (principal); Z87.81 Personal history of (healed) traumatic fracture; Z85.3 Personal history of malignant neoplasm of breast

== ENCOUNTER → 2017-02-03 | Outpatient (CLI) | payer BC ==
[~2017-02-03] MED LIST changes: +MISC-573
[2017-02-03 17:40] LABS: BASO % 0.1 %; BASO ABS # 0.01 K/uL (0-0.2); COMPLETE YES; EOS % 3.7 %; IG% 0.1 %; LYMPH % 28.7 %; LYMPH ABS # 2.03 K/uL (1.2-3.4); MEAN CELL VOLUME 92.6 fL (80-100); MEAN CORPUSCULAR HEMOGLOBIN 30.7 pg (25-34); MEAN CORPUSCULAR HGB CONC 33.2 g/dl (32-36); MEAN PLATELET VOLUME 10.8 fL (7.4-10.4); MONO % 7.5 %; NEUT % 59.9 %; PLATELET COUNT 171 K/uL (130-400); RED BLOOD COUNT 4.43 M/uL (4.2-5.4); WHITE BLOOD COUNT 7.08 K/uL (4.8-10.8)
[2017-02-03 18:46] LABS: BLOOD UREA NITROGEN 18 mg/dl (7-18); BUN/CREATININE RATIO 19.3 (10-20); CALCIUM 10.1 mg/dl (8.5-10.1); CARBON DIOXIDE 27 mmol/L (21-32); CHLORIDE 105 mmol/L (98-107); CREATININE 0.93 mg/dl (0.60-1.20); GLUCOSE 102 mg/dl (70-99); POTASSIUM 4.2 mmol/L (3.5-5.1); SODIUM 141 mmol/L (136-145)
== END | disposition home or self-care (01) ==
LOC: C.CPL 16:28
PROVIDERS: ATTEND Orthopaedic Surgery
DX: Z01.818 Encounter for other preprocedural examination (principal); S83.241D Other tear of medial meniscus, current injury, right knee, subsequent encounter; X58.XXXA Exposure to other specified factors, initial encounter

== ENCOUNTER → 2017-02-04 | Outpatient (CLI) | payer BC ==
--- NOTE | 2017-02-04 13:16 | MAMMOGRAPHY REPORT ---
BILATERAL DIGITAL DIAGNOSTIC MAMMOGRAM TOMOSYNTHESIS WITH CAD AND TARGETED LEFT ULTRASOUND: 7 CLINICAL HISTORY: 71-year-old woman with a personal history of left breast cancer status post breast conservation therapy who presents for bilateral mammography. Also reports focal pain in the upper outer quadrant of the left breast which she has noticed since left-sided trauma approximately 3 marshall hs ago. TECHNIQUE: Bilateral CC and MLO 2-D digital and tomosynthesis images, spot magnification left CC and ML views were obtained. Current study was also evaluated with a Computer Aided Detection (CAD) sys tem. COMPARISON: Comparison is made to exams dated: 08/06/2016 mammogram, 01/30/2016 mammogram, 01/16/2016 m ammogram, 10/19/2013 mammogram, 10/15/2012 mammogram, and 10/10/2011 mammogram - [facility]. BREAST COMPOSITION: There are scattered areas of fibroglandular density in both breasts. FINDINGS: There is expected architectural distortion and associated surgical clips in the upper oute r posterior left breast, at the site of prior lumpectomy. A square-shaped pain marker overlies the left upper outer quadrant, slightly inferior and anterior to the surgical site. There is a stable 2 mm grouping of punctate microcalcifications in the upper outer middle to posterior left breast, whi ch appears similar dating back to at least one 03/17/2010, therefore likely benign. A few other rou nd microcalcifications are stable bilaterally. The parenchymal pattern of the right breast is simil ar to prior mammograms. No new suspicious mass, architectural distortion or cluster of microcalcifi cations is seen. Targeted ultrasound was performed in the area of pain pointed out by the patient, which was most pro minent in the 2:00 left breast, 9 cm from the nipple. Throughout the 2:00, 3:00 and 4:00 axes of th e left breast, normal fibroglandular tissue is seen without a suspicious solid or cystic mass. IMPRESSION: ACR-BI-RADS CATEGORY 3: PROBABLY BENIGN, TARGETED ULTRASOUND ACR-BI-RADS CATEGORY 3: WI OBABLY BENIGN 1. Stable bilateral mammograms, including postsurgical/post treatment changes in the left breast. Another six-month follow-up diagnostic left mammogram is recommended to ensure stability after treat ment. 2. Stable mammographic appearance of the right breast, without mammographic evidence of malignancy. 3. No suspicious mammographic or sonographic abnormality to explain the focal pain in the left uppe r outer quadrant. This may have been related to the patient's prior trauma and continued clinical f ollow-up is recommended. These results and recommendations were discussed with the patient at the time of the exam. Approximately 10% of breast cancers are not detected with mammography. A negative mammographic repor t should not delay biopsy if a clinically suggestive mass is present. Ludmila Melendez M.D. ay/:02/04/2017 10:50:52 Almond Huller: Silvia Vincent, [facility] letter sent: Follow Up Recommended 3 BI-RADS Code: ACR-BI-RADS Category 3: Probably Benign Ultrasound BI-RADS: ACR-BI-RADS Category 3: P robably Benign
== END | disposition home or self-care (01) ==
LOC: C.MAMM 09:00
PROVIDERS: ATTEND Physician Assistant Medical
DX: N64.4 Mastodynia (principal); Z85.3 Personal history of malignant neoplasm of breast

== ENCOUNTER → 2017-05-01 | Outpatient (CLI) | payer BC ==
[2017-05-01 11:11] LABS: BLOOD UREA NITROGEN 17 mg/dl (7-18); CREATININE 0.98 mg/dl (0.60-1.20)
== END | disposition home or self-care (01) ==
LOC: C.LABBC 08:26
PROVIDERS: ATTEND Orthopaedic Surgery
DX: M25.519 Pain in unspecified shoulder (principal)

== ENCOUNTER → 2017-05-07 | Outpatient (CLI) | payer BC ==
--- NOTE | 2017-05-07 10:33 | DIAGNOSTIC IMAGING REPORT ---
LEFT RIBS UNILATERAL MIN 2 VIEWS HISTORY: 71 years-old Female RIB PAIN, LEFT SIDE COMPARISON: Radiographs of the left RIBS 11/05/2016 TECHNIQUE: Frontal view of the chest with 4 views of the left ribs FINDINGS: Cardiomediastinal and hilar silhouettes are within normal limits. There is atherosclerosis of the aorta. There is no pneumothorax, pleural effusion or focal airspace consolidation. Surgical clips are seen within the region of the left breast/chest wall. Prior ORIF of the left humerus. No acute displaced rib fracture is identified. IMPRESSION: 1. No acute cardiopulmonary process. 2. No acute left rib fracture identified. The above report was generated using voice recognition software. It may contain grammatical, syntax or spelling errors. Electronically signed by: Keenan Benson M.D. 05/07/2017 10:31 AM Dictated Date/Time: 05/07/2017 10:30 AM
== END | disposition home or self-care (01) ==
LOC: C.RADBC 10:09
PROVIDERS: ATTEND Family Medicine
DX: R07.89 Other chest pain (principal); Z98.890 Other specified postprocedural states

== ENCOUNTER → 2017-08-10 | Outpatient (CLI) | payer BC ==
--- NOTE | 2017-08-10 15:03 | MAMMOGRAPHY REPORT ---
UNILATERAL LEFT DIGITAL DIAGNOSTIC MAMMOGRAM TOMOSYNTHESIS WITH CAD: 08/10/2017 CLINICAL HISTORY: 72-year-old woman with a personal history of left breast DCIS status post breast co nservation treatment presents for a close follow-up in the left breast. TECHNIQUE: Left CC and MLO 2-D and tomosynthesis images, spot magnification left CC and ML views wer e obtained. Current study was also evaluated with a Computer Aided Detection (CAD) system. COMPARISON: Comparison is made to exams dated: 02/04/2017 ultrasound, 02/04/2017 mammogram, 08/06/2016 mammogram, 01/30/2016 mammogram, 01/21/2016 mammogram, and 01/16/2016 mammogram - [facility]. BREAST COMPOSITION: There are scattered areas of fibroglandular density in the left breast. FINDINGS: There is expected architectural distortion and 5 surgical clips in the upper outer posterio r left breast, at the site of prior lumpectomy. There are 2 benign around calcifications in the ante rior left breast. A 2 mm grouping of faint punctate microcalcifications is identified 2.5 cm medial to the surgical site on the spot magnification left CC view, which appears stable dating back to the spot magnification views obtained on 01/21/2016, and also present on prior full field mammograms dati ng back to at least 10/03/2009, at which time this grouping is seen on both the CC and exaggerated la teral CC views. No new suspicious mass, architectural distortion or cluster of microcalcifications i s seen throughout the left breast. IMPRESSION: ACR-BI-RADS CATEGORY 3: PROBABLY BENIGN Expected post treatment changes in the left breast, without definite mammographic evidence of maligna ncy. Again noted is a stable 2 mm grouping of faint punctate microcalcifications in the lateral left breast, medial to the surgical site, which appears stable dating back to 2009, therefore likely daniela gn. Recommend another close follow-up left diagnostic tomosynthesis mammogram including spot magnifi cation views in 6 months. Annual right mammography will also be due at that time. These results and recommendations were discussed with the patient at the time of the exam. Approximately 10% of breast cancers are not detected with mammography. A negative mammographic report should not delay biopsy if a clinically suggestive mass is present. Ludmila Melendez M.D. ay/:08/10/2017 10:08:46 Plumbing Technician: Charmaine Porter RT(Madonna)(M), [facility] letter sent: Follow Up Recommended 3 BI-RADS Code: ACR-BI-RADS Category 3: Probably Benign
== END | disposition home or self-care (01) ==
LOC: C.MAMM 08:59
PROVIDERS: ATTEND Physician Assistant Medical
DX: Z85.3 Personal history of malignant neoplasm of breast (principal); R92.0 Mammographic microcalcification found on diagnostic imaging of breast

== ENCOUNTER → 2017-09-02 | Outpatient (CLI) | payer BC | END | disposition home or self-care (01) | LOC: C.LABSPEC 17:26 | PROVIDERS: ATTEND Obstetrics & Gynecology | DX: N76.4 Abscess of vulva (principal) ==

== ENCOUNTER → 2017-10-20 | Outpatient (CLI) | payer BC ==
[2017-10-20 14:26] LABS: BASO % 0.6 %; BASO ABS # 0.04 K/uL (0-0.2); EOS % 3.4 %; EOS ABS # 0.24 K/uL (0-0.5); HEMATOCRIT 42.5 % (37-47); HEMOGLOBIN 14.3 g/dL (12.0-16.0); IG# 0.01 K/uL (0.00-0.02); LYMPH ABS # 1.78 K/uL (1.2-3.4); MEAN CELL VOLUME 92.6 fL (80-100); MEAN CORPUSCULAR HEMOGLOBIN 31.2 pg (25-34); MEAN CORPUSCULAR HGB CONC 33.6 g/dl (32-36); MEAN PLATELET VOLUME 11.3 fL (7.4-10.4); MONO % 6.5 %; MONO ABS # 0.46 K/uL (0.11-0.59); NEUT % 64.4 %; PLATELET COUNT 173 K/uL (130-400); RED CELL DISTRIBUTION WIDTH CV 12.9 % (11.5-14.5); RED CELL DISTRIBUTION WIDTH SD 43.3 fL (36.4-46.3); WHITE BLOOD COUNT 7.13 K/uL (4.8-10.8)
[2017-10-20 14:51] LABS: BLOOD UREA NITROGEN 14 mg/dl (7-18); CALCIUM 9.7 mg/dl (8.5-10.1); CARBON DIOXIDE 29 mmol/L (21-32); CREATININE 0.82 mg/dl (0.60-1.20); GLUCOSE 97 mg/dl (70-99); POTASSIUM 4.4 mmol/L (3.5-5.1); SODIUM 136 mmol/L (136-145)
== END | disposition home or self-care (01) ==
LOC: C.LABBC 10:37
PROVIDERS: ATTEND Orthopaedic Surgery
DX: Z01.812 Encounter for preprocedural laboratory examination (principal); M75.22 Bicipital tendinitis, left shoulder

== ENCOUNTER → 2017-11-12 | Day surgery (SDC) | payer BC ==
[2017-10-27 08:18] VITALS: Ht 172.7 cm; Wt 72.7 kg
[~2017-11-12] VITALS: Ht 172.7 cm; Wt 72.7 kg
[~2017-11-12] MED LIST changes: -ASPCH81X PO; +ASPI81TA28 PO; +ATROPINE SULFATE 0.1 MG/ML 5ML SYR IV PRN; +BUPIVACAINE 0.25% 30 ML VIAL ONE; +CEFAZOLIN 2000MG IV PUSH 15 ML IV SCH; +CHOL100034 PO; -CHOL1TAB; +DEXAMETHASONE SOD INJ 4 MG/ML VIAL ONE; +EpHEDrine SULFATE 50MG/5ML SYR ONE; +EpINEphrine INJ 1MG/ML AMP 1 MG/ML AMP ONE; +FENTANYL CITRATE INJ 50 MCG/1 ML 2 ML VIAL IV PRN; +FENTANYL CITRATE INJ 50 MCG/1 ML 2 ML VIAL ONE; +KETO10TA PO; +KETOROLAC TROMETHAMINE 30 MG/ML VIAL IV. PRN; +LACTATED RINGER'S 1000ML 1,000 ML IV SCH; +LIDOCAINE HCL 2% 2 ML VIAL (20MG/ML) ONE; +MIDAZOLAM HCL 1 MG/ML 2ML VIAL ONE; -MISC-573; +ONDANSETRON INJ 2 MG/ML 2 ML VIAL IV PRN; +ONDANSETRON INJ 2 MG/ML 2 ML VIAL ONE; +OXYC-57 PO; +OXYCODONE/ACETAMINOPHEN 5-325 TAB PO PRN; -PANT40TA PO; +PROPOFOL IV EMULSION 10 MG/ML 20 ML VIAL IV ONE; +ROPIVACAINE 0.5% 5 MG/ML 30 ML VIAL ONE; +SODIUM CHLORIDE 0.9% 1000ML 1,000 ML IV SCH; +SUCCINYLCHOLINE CHLORIDE 20 MG/ML 10 ML VIAL IV ONE
--- NOTE | 2017-11-12 08:03 | [facility] Post Operative Brief Note ---
Immediate Operative Summary Operative Date Nov 12, 2017. Pre-Operative Diagnosis Left Shoulder Impingement Syndrome, Biceps Tendonitis Post-Operative Diagnosis Same Procedure(s) Performed Left Shoulder Arthroscopy With Subacromial Decompression and Open Biceps Tenodesis Surgeon Dr. Koch Urologic Surgeon Surgeon(s) Axel Mckinnon PA-C Estimated Blood Loss 5ML Findings Consistent with Post-Op Diagnosis Specimens None Anesthesia Type General Regional Complication(s) none Disposition Disposition: Recovery Room / PACU
--- NOTE | 2017-11-12 08:18 | Discharge Instructions-SurgCtr ---
Discharge Instructions Date of Service Nov 12, 2017. Visit Reason for Visit: Left Shoulder Biceps Tendinitis, Pain Discharge Discharge Diagnosis / Problem: SAME ABOVE Discharge Goals Goal(s): Decrease discomfort, Improve function Medications Stopped Medications Name(s): Aspirin stopped 11-05-17 Restart Stopped Medication(s): MAY RESTART 11/13/2017 Activity Recommendations Activity Limitations: as noted below Exercise/Sports Limitations: gradually increase as tolerated Driving or Machine Use: WHEN OUT OF THE SLING AND OFF OF PAIN MEDICATION Anesthesia . Post Anesthesia Instructions: If you have had General Anesthesia or IV Sedation: * Do not drive today. * Resume driving when surgeon permits. * Do not make important decisions or sign legal documents today. * Call surgeon for: 1. Temperature elevations greater than 101 degrees F. 2. Uncontrollable pain. 3. Excessive bleeding. 4. Persistent nausea and vomiting. 5. Medication intolerance (nausea, vomiting or rash). * For nausea and vomiting use only clear liquids such as: tea, soda, bouillon until nausea subsides, then gradually increase diet as tolerated. * If you have any concerns or questions, call your surgeon's office. If physician is unavailable and it is an emergency, call 911 or go to the nearest emergency room. . Instructions / Follow-Up Instructions / Follow-Up MEDICATIONS: * Resume previous medications unless instructed otherwise by your surgeon. * Always take pain medication on a full stomach or with food to avoid upset stomach. * Do not drink alcohol or drive while taking narcotics. * Ibuprofen or Tylenol may be taken if narcotic not needed. SPECIAL CARE INSTRUCTIONS: __ None _X_ Keep extremity elevated and iced x 48 hours; apply ice 20-30 minutes 8-10 times/day. May remove at night. _X_ Sling (WEAR NEEDED FOR COMFORT) __24 hrs/day __ Remove at night __ Shoulder Immobilizer __ 24 hrs/day __ Remove at night _X_ Dressing __ Maintain until seen in office, may shower with plastic over site _X_ Remove dressings in 24-48 hours and then may shower _X_ Cover incisions with band-aids after showering _X_ Do not remove steri-strips Call physician if chills or temperature rises above 102 degrees or pain unrelieved by prescribed pain medications at . . Diet Recommendations Home Diet: no limitations Fluid Restriction: None Procedures Procedures Performed: Left Shoulder Arthroscopy With Subacromial Decompression and Open Biceps Tenodesis Pending Studies Studies pending at discharge: no Work Instructions Lifting Limitations: NO LIFTING MORE THAN 5 POUNDS WITH LEFT ARM Medical Emergencies . Who to Call and When: Medical Emergencies: If at any time you feel your situation is an emergency, please call 911 immediately. . Non-Emergent Contact Non-Emergency issues call your: Primary Care Provider Call Non-Emergent contact if: you have a fever, temperature is above 101.5 . . "Provider Documentation" section prepared by Bean Mckinnon. .
[2017-11-12 08:52] VITALS: TEMP 36.5
--- NOTE | 2017-11-12 09:05 | OPERATIVE REPORT ---
DATE OF OPERATION: 11/12/2017 PREOPERATIVE DIAGNOSES: Severe external impingement, biceps tendinopathy of the left shoulder. POSTOPERATIVE DIAGNOSES: Same. PROCEDURE: Left shoulder diagnostic arthroscopy with limited debridement, acromioplasty and open subpectoral biceps tenodesis. SURGEON: Dr. Darin Koch. BORDER GUARD: Bean Mckinnon PA-C, whose assistance was necessary for positioning the arm and helping with instrumentation. ANESTHESIA: General with a left interscalene nerve block. COMPLICATIONS: None. CONDITION: Stable to PACU. INDICATIONS: Ana is a pleasant 72-year-old female who underwent a right shoulder arthroscopy for decompression and biceps tenodesis back in 2013. She did very well with that. Unfortunately, in the interim, she had a fracture to her left arm and I treated her with plate and screw fixation. Then, she started to develop pain in her left shoulder. MRI and clinical examination were diagnostic for severe external impingement, biceps tendinopathy. After failing conservative treatment, she elected to undergo arthroscopy. DESCRIPTION OF PROCEDURE: On 11/12/2017, she arrived at [facility] [address] for the above procedure. She was seen in the preoperative holding area and the operative extremity was identified and signed. She was then given a left interscalene nerve block and an antibiotic. She was taken back to the operating room, laid on the table in supine position and put under general anesthesia. She was put into the beachchair position. The left shoulder was prepped and draped in sterile fashion. Time-out was done and the patient and operative extremity was properly identified. A scope was introduced in the posterior portal. Diagnostic arthroscopy showed no cartilage damage to the humeral head or the glenoid. There was a little fraying of the anterior labrum, but not much. The biceps tendon went through an enlarged biceps amy mechanism. The biceps tendon was red on the dorsal aspect. There was no tearing of the supraspinatus, infraspinatus, teres minor or subscapularis. An anterior portal was made. A shaver was used to do a limited debridement of the intraarticular structures and the biceps tendon was arthroscopically tenotomized. The scope was then put into the subacromial space. A lateral portal was made. A shaver was used to do a complete subacromial and subdeltoid bursectomy. An ablator was used to tease the coracoacromial ligament off the undersurface of the acromion and a 5-0 reyna was used to complete an acromioplasty of a large Bigliani type 3 acromion. A shaver was used to remove any excess debris and attention was turned to the rotator cuff. The bursal side of the rotator cuff was examined extensively without evidence of tear. Arthroscopic instruments were removed from the shoulder. Attention was turned to an open biceps tenodesis. A small incision was made over the inferior border of the pec major. Dissection was taken down through the fascia and the long head of the biceps tendon was delivered out of the wound. The tendon was then whip stitched at the anticipated level of tenodesis and the remainder of the tendon was discarded. A 6-mm hole was drilled in the bicipital groove and the biceps tendon was tenodesed with an Arthrex biceps button that was passed through the posterior cortex in a tension slide technique to deliver the tendon into the 6-mm hole. This gave good fixation. The sutures were then tied. The wound was then irrigated and closed with 3-0 Vicryl and running 3-0 Monocryl. Steri-strips were placed. Portal sites were closed with 3-0 nylon. She was then placed in a soft dressing and a regular arm sling. She was then extubated, transferred to a litter and taken to the postanesthesia care unit in stable condition. She tolerated the procedure well. I attest to the content of the Intraoperative Record and any orders documented therein. Any exception s are noted below.
[2017-11-12 09:17] VITALS: BP 131/74; PULSE 72; O2SAT 97
--- NOTE | 2017-11-12 09:19 | Anesthesia Progress Nt - [facility] ---
Anesthesia Post Op Note Date & Time Nov 12, 2017 at 09:18 Vital Signs Pain Intensity: 0 Vital Signs Past 12 Hours Date Time Temp Pulse Resp B/P (MAP) Pulse Ox O2 Delivery O2 Flow Rate FiO2 11/12/17 09:17 72 16 131/74 (93) 97 Room Air 11/12/17 08:52 36.5 78 16 128/75 (92) 97 Room Air 11/12/17 08:43 36.3 77 16 133/74 96 Room Air 11/12/17 08:42 73 21 11/12/17 08:42 75 21 96 11/12/17 08:41 133/74 11/12/17 08:37 79 15 11/12/17 08:37 78 15 131/74 98 11/12/17 08:32 81 21 99 11/12/17 08:32 81 21 11/12/17 08:31 108/67 11/12/17 08:27 74 14 99 11/12/17 08:27 74 14 11/12/17 08:26 124/81 11/12/17 08:22 80 16 11/12/17 08:22 78 16 99 11/12/17 08:21 125/58 11/12/17 08:17 79 12 11/12/17 08:17 78 12 99 11/12/17 08:16 126/66 11/12/17 08:14 139/64 11/12/17 08:13 36.1 80 16 139/64 98 Mask 6 11/12/17 07:07 64 11/12/17 07:07 64 8 100 11/12/17 07:06 162/67 11/12/17 07:04 62 11/12/17 07:04 64 16 100 11/12/17 07:02 165/80 11/12/17 06:59 68 100 11/12/17 06:59 66 11/12/17 06:35 36.6 60 16 167/71 (103) 98 Room Air Notes Mental Status: alert / awake / arousable, participated in evaluation Pt Amnestic to Procedure: Yes Nausea / Vomiting: adequately controlled Pain: adequately controlled Airway Patency, RR, SpO2: stable & adequate BP & HR: stable & adequate Hydration State: stable & adequate Anesthetic Complications: no major complications apparent
== END | disposition home or self-care (01) ==
LOC: X.SURG 06:11
PROVIDERS: ATTEND Orthopaedic Surgery
DX: M75.42 Impingement syndrome of left shoulder (principal); M75.22 Bicipital tendinitis, left shoulder; E78.00 Pure hypercholesterolemia, unspecified; Z88.1 Allergy status to other antibiotic agents; Z79.82 Long term (current) use of aspirin; Z85.3 Personal history of malignant neoplasm of breast; Z82.49 Family history of ischemic heart disease and other diseases of the circulatory system; Z82.3 Family history of stroke

== ENCOUNTER → 2017-12-02 | Outpatient (CLI) | payer BC ==
[2016-05-22 14:59] VITALS: BP 145/77; PULSE 63
[~2017-12-02] MED LIST changes: -ATROPINE SULFATE 0.1 MG/ML 5ML SYR IV PRN; -BUPIVACAINE 0.25% 30 ML VIAL ONE; -CEFAZOLIN 2000MG IV PUSH 15 ML IV SCH; -DEXAMETHASONE SOD INJ 4 MG/ML VIAL ONE; -EpHEDrine SULFATE 50MG/5ML SYR ONE; -EpINEphrine INJ 1MG/ML AMP 1 MG/ML AMP ONE; -FENTANYL CITRATE INJ 50 MCG/1 ML 2 ML VIAL IV PRN; -FENTANYL CITRATE INJ 50 MCG/1 ML 2 ML VIAL ONE; -KETOROLAC TROMETHAMINE 30 MG/ML VIAL IV. PRN; -LACTATED RINGER'S 1000ML 1,000 ML IV SCH; -LIDOCAINE HCL 2% 2 ML VIAL (20MG/ML) ONE; -MIDAZOLAM HCL 1 MG/ML 2ML VIAL ONE; -ONDANSETRON INJ 2 MG/ML 2 ML VIAL IV PRN; -ONDANSETRON INJ 2 MG/ML 2 ML VIAL ONE; -OXYCODONE/ACETAMINOPHEN 5-325 TAB PO PRN; -PROPOFOL IV EMULSION 10 MG/ML 20 ML VIAL IV ONE; -ROPIVACAINE 0.5% 5 MG/ML 30 ML VIAL ONE; +SACC250C11 PO; -SODIUM CHLORIDE 0.9% 1000ML 1,000 ML IV SCH; -SUCCINYLCHOLINE CHLORIDE 20 MG/ML 10 ML VIAL IV ONE
[2017-12-02 13:18] VITALS: BP 149/70; PULSE 69; TEMP 36.7; O2SAT 96
--- NOTE | 2017-12-02 14:19 | Radiation Oncology Follow-Up ---
Radiation Oncology Follow-Up Date of Visit Dec 02, 2017. 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 She declined antiestrogen therapy. Last Edited By: Cara Glez on Dec 02, 2017 14:18 History of Present Illness Ms. Bland had been followed with annual screening mammograms. The mammogram was not performed in 2014 and her most recent bilateral digital screening mammogram was on 01/16/2016. This showed newly visualized small cluster of calcifications in the left upper outer quadrant with spot magnification views recommended. Additionally there was a possible moldable 8mm mass seen within the right central breast recommendation for spot compression views and possible breast ultrasound for further evaluation. On 01/21/2016 the patient underwent bilateral digital diagnostic mammogram and targeted right breast ultrasound. The spot compression views of the right breast demonstrated a possible moldable partially circumscribed and partially obscured 7 mm mass in the right lower outer quadrant anteriorly. Targeted ultrasound of the right lower outer quadrant showed mild duct ectasia with no suspicious masses or other suspicious sonographic abnormalities evident. Spot magnification view of the left breast demonstrated a small 2 mm cluster of punctate calcifications in the left upper outer quadrant which were not clearly evident on prior exams. Given that this cluster is new and indeterminant a stereotactic biopsy was recommended. A small 1 mm cluster calcifications seen more medially in the breast on spot magnification cc Jannet was stable compared to prior exams and considered benign. On 01/30/2016 the patient underwent a stereotactic guided biopsy of the left breast. 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 4 separate foci were noted measuring 0.25 x 0.1 cm, 0.5 x 0.2 cm, 0.1 cm and 0.1 cm. Calcifications were present and associated with DCIS. Estrogen receptors were positive (60%, 30% strong and 30% week). Progesterone receptors were negative (0% staining). No invasive carcinoma was identified. Case: [id number]. Patient was seen by Dr. Brewer who discussed surgical treatment options. He discussed breast conserving therapy with the patient who agreed. She was therefore scheduled for and underwent a left partial mastectomy on 02/18/2016. This revealed residual DCIS that was present in most of the sections submitted. The estimate of the size of the DCIS was 2.5 cm. This was a nuclear grade 3 with comedonecrosis present. The deep margin is suspicious for involvement by DCIS. On 1 section the DCIS is present in the duct immediately adjacent to the final deep margin though the cells within the duct itself did not extend on to the inked margin surface. Another section showed an area of deep margin which is torn and fragmented with DCIS immediately nearby. Finally there are a few irregular cauterized ducts at the deep margin which could represent cauterized DCIS. The DCIS was also located 0.1 cm away from the inferior margin. Case: [id number]. Dr. Brewer proceeded with a reexcision of the margins on 03/17/2016. The left breast deep margin showed fat necrosis with no tumor seen. The left breast deeper margin also showed no tumor. Case: [id number]. Thus the final pathologic stage is pTis, ER positive and MD negative. Dr. Brewer discussed potential adjuvant antiestrogen therapy with the patient. She has concerns based on the potential increased risk of uterine cancer. At the present time she stated she is leaning away from considering adjuvant antiestrogen therapy although a final decision has not yet been made. We were asked to see the patient in referral to discuss with her the role of adjuvant radiation. It is for this reason the patient is seen in referral. She underwent a CT simulation and was found to be a candidate for accelerated partial breast irradiation. This was completed 04/18/2016. She received 3850 cGy Interim History She has been doing well over this past year. She does have some occasional mild soreness of the breast. She rates as a level 1. It only occurs when if this is bumped or touched. She has noticed no changes of the overlying skin. She has noted no masses or tenderness and no change of the axilla. She is up-to -date on mammography. She did undergo surgery to her left shoulder this past year. She steadily recovered. She did have discomfort in her lower rib area. She reviewed that with the surgeon it was felt due to positioning. This is since resolved. She also had an episode of hives that occurred across her upper abdomen lower abdomen and in her hairline. This occurred in the night. She used [id number] medications and the hives resolved. We discussed at length what she may have been in contact with what she may have eaten. In discussing this further she had eaten some almonds that day. She does have a grandson who is highly allergic to nuts. Allergies Coded Allergies: Nitrates, Organic (Verified Allergy, Mild, UNKNOWN, 11/12/17) Ciprofloxacin (Verified Allergy, Unknown, HEART RACING, WARM FEELING, 11/12) Nitrofurantoin (Verified Allergy, Unknown, SOB, HEART PALPITATIONS, ) Ginkgo (Verified Adverse Reaction, Unknown, BRUISES EASILY, 11/12/17) Home Medications Scheduled Aspirin (Aspirin Ec), 81 MG PO QAM Cholecalciferol (Cvs D3), 1,000 UNITS PO QAM Coenzyme Q10 (Ubidecarenone) (Co Q 10), 1 CAP PO QAM Cranberry-Vitamin C-Vitamin E (Cranberry Super Strength), DAILY Fwjhibjeumr-Tkiczlovfrb-Br Cho (Glucosamine Chondroitin &), 1 TAB PO QAM Multivitamin (Multivitamin), 1 TAB PO QAM Rosuvastatin Calcium (Crestor), 5 MG PO QAM Saccharomyces Boulardii (Probiotic), 1 CAP PO DAILY Scheduled PRN Psyllium (Metamucil), 1 CAP PO DAILY PRN for Constipation Review of Systems Gastrointestinal: Symptoms: WNL Oral: Symptoms: No Problems Respiratory: Symptoms: WNL Urinary: Symptoms: WNL Skin: Symptoms: No Problems Breast: Right Upper Arm Measurement: 28.8 Right Mid Arm Measurement: 22.8 Right Wrist Measurement: 14.6 Left Upper Arm Measurement: 29.0 Left Mid Arm Measurement: 22.0 Left Wrist Measurement: 14.1 Arm Dominence: Right Physical Exam Vital Signs Date Time Temp Pulse Resp B/P (MAP) Pulse Ox O2 Delivery O2 Flow Rate FiO2 12/02/17 13:18 36.7 69 18 149/70 96 Fatigue: None General Appearance: no apparent distress Eyes: normal inspection, EOMI ENT: normal ENT inspection, hearing grossly normal Neck: no adenopathy, thyroid normal Respiratory/Chest: lungs clear, no respiratory distress, no accessory muscle use Breast: Breast examination reveals well-healed incision of the left breast. There are no masses or tenderness and no axillary adenopathy. She has an area of fibrous changes in the upper outer portion of the breast. There is slight tenderness. There are no skin retractions or nipple changes. Using the Harward score cosmesis she has an excellent outcome. The right breast showed no masses or tenderness and no axillary adenopathy. Cardiovascular: regular rate, rhythm, no gallop, no murmur Extremities: no pedal edema Neurologic/Psychiatric: no motor/sensory deficits, alert, normal mood/affect Skin: warm/dry Pain Management Patient Reports Pain: Yes Pain Location: None Patient Preferred Pain Scale: 0 - 10 Initial Pain Intensity: 1.0 Pain Management Plan The discomfort she feels is minimal and does not require any pain management. Laboratory Laboratory Results: not applicable Pathology Pathology Results: not applicable Imaging Imaging Studies: were reviewed, and pertinent findings noted below Imaging Comments Patient: WILLIAM BLAND [facility] Rec: [id number] Address1: [address] [place] [address] Address2: [facility] ID: [id number] Date: 1945 Sex: F Ref Phy: Cara Glez PA-C Att Phy: Cara Glez PA-C Ingrid Phy: Ariel Lin M.D. 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 TECHNIQUE: Left CC and MLO 2-D and tomosynthesis images, spot magnification left CC and ML views were obtained. Current study was also evaluated with a Computer Aided Detection (CAD) system. COMPARISON: Comparison is made to exams dated: 02/04/2017 ultrasound, 02/04/2017 mammogram, 08/06/2016 mammogram, 01/30/2016 mammogram, 01/21/2016 mammogram, and mammogram - [facility]. BREAST COMPOSITION: There are scattered areas of fibroglandular density in the left breast. FINDINGS: There is expected architectural distortion and 5 surgical clips in the upper outer posterior left breast, at the site of prior lumpectomy. There are 2 benign around calcifications in the anterior left breast. A 2 mm grouping of faint punctate microcalcifications is identified 2.5 cm medial to the surgical site on the spot magnification left CC view, which appears stable dating back to the spot magnification views obtained on 01/21/2016, and also present on prior full field mammograms dating back to at least 10/03/2009, at which time this grouping is seen on both the CC and exaggerated lateral CC views. No new suspicious mass, architectural distortion or cluster of microcalcifications is seen throughout the left breast. IMPRESSION: ACR-BI-RADS CATEGORY 3: PROBABLY BENIGN Expected post treatment changes in the left breast, without definite mammographic evidence of malignancy. Again noted is a stable 2 mm grouping of faint punctate microcalcifications in the lateral left breast, medial to the surgical site, which appears stable dating back to 2009, therefore likely benign. Recommend another close follow-up left diagnostic tomosynthesis mammogram including spot magnification views in 6 months. Annual right mammography will also be due at that time. These results and recommendations were discussed with the patient at the time of the exam. Approximately 10% of breast cancers are not detected with mammography. A negative mammographic report should not delay biopsy if a clinically suggestive mass is present. Ludmila Melendez M.D. ay/:08/10/2017 10:08:46 Pole Incisor Operator: Charmaine BRADLEY(Madonna)(M), [facility] letter sent: Follow Up Recommended 3 BI-RADS Code: ACR-BI-RADS Category 3: Probably Benign Dictated by: Ludmila Melendez MD Signed by: Ludmila Melendez MD Assessment & Plan Plan: Continue with scheduled mammography. She will have bilateral mammogram in January. We discussed the area of tenderness in the upper portion of the breast. These are fibrous changes. We discussed possibility of tissue fat necrosis. I suggested light massage. If the discomfort would increase she should call. She will otherwise have a follow-up appointment with her breast surgeon in approximately 3 months. We discussed the allergic reaction that occurred. She is going to see her family physician and discuss possible referral for allergy testing. We asked her to return to our office in 1 year. She may call if she has any questions or concerns in the interim. Total Time In Follow-Up I spent 25 minutes speaking to the patient in performing examination. I spent 15 minutes reviewing information and completing this note. Copy To Bud Corona DO; Ariel Lin M.D.
== END | disposition home or self-care (01) ==
LOC: C.ONC 13:12
PROVIDERS: ATTEND Physician Assistant Medical
DX: Z08 Encounter for follow-up examination after completed treatment for malignant neoplasm (principal); Z92.3 Personal history of irradiation; Z86.000 Personal history of in-situ neoplasm of breast

== ENCOUNTER → 2018-02-04 | Outpatient (CLI) | payer BC ==
[~2018-02-04] MED LIST changes: -KETO10TA PO; -OXYC-57 PO
--- NOTE | 2018-02-05 07:49 | MAMMOGRAPHY REPORT ---
BILATERAL DIGITAL DIAGNOSTIC MAMMOGRAM TOMOSYNTHESIS WITH CAD: 02/04/2018 CLINICAL HISTORY: History of left breast DCIS status post lumpectomy January 2016 as well as radiation th erapy. The patient reports no new lumps or other complaints. TECHNIQUE: Breast tomosynthesis in addition to standard 2D mammography was performed. Current study was also evaluated with a Computer Aided Detection (CAD) system. Bilateral CC and MLO 2D and tomosyn thesis images and spot magnification left CC and ML views were obtained. COMPARISON: Comparison is made to exams dated: 02/04/2018 ultrasound, 08/10/2017 mammogram, 02/04/2017 ultrasound, 02/04/2017 mammogram, 08/06/2016 mammogram, and 01/30/2016 mammogram - . BREAST COMPOSITION: There are scattered areas of fibroglandular density in both breasts. FINDINGS: There are stable post surgical changes in the left upper outer quadrant from prior lumpecto my, including stable architectural distortion, density, and surgical clips at the lumpectomy bed. A linear scar marker denotes a scar on the left upper outer breast. A small 1 mm cluster of punctate b enign-appearing calcifications in the left upper outer quadrant medial to the lumpectomy bed is stabl e on spot magnification views dating back to April 2016 and stable on full-field views dating back t o at least 2009 and is considered benign given long-term stability. The remainder of both breasts ar e stable compared to prior exams, without suspicious masses, calcifications, or areas of architectura l distortion noted. IMPRESSION: ACR BI-RADS CATEGORY 2: BENIGN Stable posttreatment changes in the left breast, without mammographic evidence of malignancy in eithe r breast. Recommend routine bilateral mammograms in 1 year; I would recommend the patient remain a diagnostic patient next year so that magnification views can be performed of the lumpectomy bed. The patient has been verbally notified of the results. Approximately 10% of breast cancers are not detected with mammography. A negative mammographic report should not delay biopsy if a clinically suggestive mass is present. Pamella Cadena M.D. /:02/04/2018 11:08:58 Acls Specialist: Silvia Vincent, letter sent: Normal 1/2 BI-RADS Code: ACR BI-RADS Category 2: Benign
== END | disposition home or self-care (01) ==
LOC: C.MAMM 10:31
PROVIDERS: ATTEND Physician Assistant Medical
DX: R92.8 Other abnormal and inconclusive findings on diagnostic imaging of breast (principal)